=== PATIENT | male | born 1945 | race Caucasian/White ===

== ENCOUNTER 2016-11-24 10:18 | Emergency (ER) | payer MEDICARE, BC ==
[2016-11-24 10:59] VITALS: BP 156/72
[2016-11-24] MEDS ORDERED: Ketorolac 60 MG/2 ML SDV IM ONE (11:01)
--- NOTE | 2016-11-24 11:09 | EDM.PDOC ---
ED HPI GENERAL MEDICAL PROBLEM - General Chief Complaint: Upper Extremity Injury/Pain Stated Complaint: NECK AND SHOULDER PAIN Time Seen by Provider: 11/24/16 10:56 Source of Information: Reports: Patient, Family, RN Notes Reviewed History Limitations: Reports: No Limitations - History of Present Illness INITIAL COMMENTS - FREE TEXT/NARRATIVE: 71-year-old gentleman presents emergency department today complaint of left shoulder pain, he states he awoke this morning and had difficulty moving his shoulder has improved a little bit he's got a little bit more move meant he denies any trauma he does not recall having this particular event ever before - Related Data Allergies Allergy/AdvReac Type Severity Reaction Status Date / Time ciprofloxacin [From Cipro] Allergy Swelling Verified 11/24/16 10:45 Home Meds: Home Meds levETIRAcetam [Levetiracetam] 1,000 mg PO BID 05/17/16 [History] atorvaSTATin [Lipitor] 11/24/16 [History] glipiZIDE [Glipizide] 11/24/16 [History] Past Medical History Cardiovascular History: Reports: High Cholesterol Neurological History: Reports: Other (See Below) Other Neuro History: epilepsy Endocrine/Metabolic History: Reports: Diabetes, Type II - Infectious Disease History Infectious Disease History: Reports: Chicken Pox - Past Surgical History Musculoskeletal Surgical History: Reports: Knee Replacement Social & Family History - Tobacco Use Smoking Status *Q: Never Smoker - Caffeine Use Caffeine Use: Reports: Coffee, Tea - Recreational Drug Use Recreational Drug Use: No Review of Systems - Review of Systems Review Of Systems: See Below Constitutional: Reports: No Symptoms Eyes: Reports: No Symptoms Ears: Reports: No Symptoms Nose: Reports: No Symptoms Mouth/Throat: Reports: No Symptoms Respiratory: Reports: No Symptoms Cardiovascular: Reports: No Symptoms GI/Abdominal: Reports: No Symptoms Musculoskeletal: Reports: Shoulder Pain Skin: Reports: No Symptoms ED EXAM, GENERAL - Physical Exam Exam: See Below Free Text/Narrative:: Examination the shoulder he has difficulty with abduction only approximately 10 for pain does not tolerate internal and external rotation of the shoulder, radial pulses 2+ Course - Vital Signs Last Recorded V/S: Last Vital Signs Temp 98.5 F 11/24/16 10:53 Pulse 41 L 11/24/16 10:53 Resp 16 11/24/16 10:53 BP 156/72 H 11/24/16 10:53 Pulse Ox 94 L 06/17/17 10:53 - Orders/Labs/Meds Orders: Active Orders 24 hr Category Date Time Status Shoulder Comp Rt [CR] Stat Exams 11/24/16 11:05 Ordered Meds: Medications Discontinued Medications Generic Name Dose Route Start Last Admin Trade Name Greg PRN Reason Stop Dose Admin Ketorolac Tromethamine 60 mg 11/24/16 11:01 11/24/16 11:20 Toradol IM 11/24/16 11:02 60 mg ONETIME ONE Administration Departure - Departure Time of Disposition: 11:40 Disposition: Home, Self-Care 01 Condition: Good Clinical Impression: Frozen shoulder Qualifiers: Laterality: left Qualified Code(s): M75.02 - Adhesive capsulitis of left shoulder - Discharge Information Forms: ED Department Discharge Additional Instructions: Try ibuprofen until reevaluated by your primary care provider next week, call return to the emergency department with worsening of symptoms - My Orders Last 24 Hours: My Active Orders 11/24/16 11:05 Shoulder Comp Rt [CR] Stat - Assessment/Plan Last 24 Hours: My Active Orders 11/24/16 11:05 Shoulder Comp Rt [CR] Stat Plan: Assessment Acuity = acute Site and laterality = frozen shoulder comp care the patient known history of diabetestype II Etiology = unclear etiology Manifestations = pain Location of injury = home Lab values = shoulder x-ray I did review films myself I cannot appreciate any acute process, the official read from radiology is pending Plan He had some relief with the Toradol injection provided I did offer further evaluation and referral to orthopedics he declined he does have follow-up with his primary care provider this coming week Patient was in agreement with the plan all questions were answered, they were instructed to return to the emergency department or call for worsening symptoms. This note was dictated using [employer] voice recognition software please call with any questions.
--- NOTE | 2016-11-26 10:41 | CR ---
Shoulder Comp Rt HISTORY: pain, no trauma FINDINGS: No acute fracture or dislocation is identified. Bony architecture is preserved. Mild degen erative changes and appear marginal osteoids is seen at the clinic joint. Hypertrophic changes are s een at the AC joint. Left upper chest is clear. IMPRESSION: Degenerative changes. No acute left shoulder abnormality is identified.
== END 2016-11-24 11:49 | disposition home or self-care (01) ==
LOC: JP.ED 10:18
DX: M75.02 Adhesive capsulitis of left shoulder (principal); E78.00 Pure hypercholesterolemia, unspecified; E11.9 Type 2 diabetes mellitus without complications; G40.909 Epilepsy, unspecified, not intractable, without status epilepticus; Z96.659 Presence of unspecified artificial knee joint; Z88.1 Allergy status to other antibiotic agents
CPT/HCPCS: 73030; 96372; 99284; J1885; 99282

== ENCOUNTER 2016-11-27 06:17 | Emergency (ER) | payer MEDICARE, BC ==
[2016-11-27 06:26] VITALS: BP 171/77
--- NOTE | 2016-11-27 07:25 | EDM.PDOC ---
ED HPI GENERAL MEDICAL PROBLEM - General Chief Complaint: Neuro Symptoms/Deficits Stated Complaint: MEDICAL VIA [facility] Time Seen by Provider: 11/27/16 07:21 Source of Information: Reports: Patient, RN Notes Reviewed History Limitations: Reports: No Limitations - History of Present Illness INITIAL COMMENTS - FREE TEXT/NARRATIVE: 71-year-old gentleman presents emergency department today via EMS services, he has a known seizure disorder he states he was feeling fine yesterday, collapsed this morning he does not remember any particular details he was somewhat confused this morning and had difficulty with speech now at this time he feels all that is starting to resolve last seizure was approximately 3 years ago he currently uses Keppra as his main seizure medication. 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 Denies Pain Score (Numeric/FACES): 0 - Related Data Allergies Allergy/AdvReac Type Severity Reaction Status Date / Time ciprofloxacin [From Cipro] Allergy Swelling Verified 11/27/16 06:26 Home Meds: Home Meds levETIRAcetam [Levetiracetam] 1,000 mg PO BID 05/17/16 [History] Ibuprofen [Motrin] 600 mg PO TID PRN #30 tab 11/24/16 [Rx] atorvaSTATin [Lipitor] 1 tab PO BEDTIME 11/24/16 [History] glipiZIDE [Glipizide] 20 mg PO DAILY 11/27/16 [History] Past Medical History HEENT History: Reports: Impaired Vision Cardiovascular History: Reports: High Cholesterol Neurological History: Reports: Other (See Below) Other Neuro History: epilepsy Psychiatric History: Reports: Depression Endocrine/Metabolic History: Reports: Diabetes, Type II - Infectious Disease History Infectious Disease History: Reports: Chicken Pox, Shingles - Past Surgical History HEENT Surgical History: Reports: Cataract Surgery GI Surgical History: Reports: Colonoscopy Musculoskeletal Surgical History: Reports: Knee Replacement Social & Family History - Tobacco Use Smoking Status *Q: Never Smoker Second Hand Smoke Exposure: No - Caffeine Use Caffeine Use: Reports: Coffee - Recreational Drug Use Recreational Drug Use: No ED ROS GENERAL - Review of Systems Review Of Systems: See Below Constitutional: Reports: No Symptoms HEENT: Reports: No Symptoms Respiratory: Reports: No Symptoms Cardiovascular: Reports: No Symptoms GI/Abdominal: Reports: No Symptoms : Reports: No Symptoms Musculoskeletal: Reports: No Symptoms Skin: Reports: No Symptoms Neurological: Reports: Confusion, Seizure, Trouble Speaking ED EXAM, NEURO - Physical Exam Exam: See Below Text/Narrative:: General: Male, not in any distress, alert and oriented x3 HEENT: head is atraumatic normocephalic, eyes pupils equal round reactive to light, sclera clear no conjunctivitis appreciated. Ears blocked by cerumen bilaterally, nose : no septal deviation, nares are clear, no blood present. Mouth mucosa is moist and pink no erythema or exudate noted in soft palate, tongue is midline uvula is midline, dentition is intact. Neck: Supple no thyromegaly no tracheal deviation. Nodes: Cervical nodes subclavicular nodes nontender no palpable lymphadenopathy noted. Lungs: clear to auscultation bilaterally with symmetrical respirations, no adventitious noise appreciated. CV: Regular rate and rhythm S1 and S2 appreciated no murmurs rubs or gallops noted. Abdomen: Soft, nontender, no palpable masses or organomegaly appreciated, no distention no guarding bowel sounds are present. Neuro: Cranial nerves II through XII grossly intact no focal neurologic deficit blackman 5 x 5 in the upper extremities no dysdiadochokinesis Skin: Warm and dry, intact Extremities: No lower extremity edema appreciated, Course - Vital Signs Last Recorded V/S: Last Vital Signs Temp 98.1 F 11/27/16 06:24 Pulse 74 11/27/16 06:24 Resp 20 11/27/16 06:24 BP 171/77 H 11/27/16 06:24 Pulse Ox 89 L 11/27/16 06:24 - Orders/Labs/Meds Orders: Active Orders 24 hr Category Date Time Status [facility] [place] [REF] Stat Lab 11/27/16 07:20 Received Labs: Laboratory Tests 11/27/16 11/27/16 11/27/16 Range/Units 07:20 07:20 07:20 WBC 12.4 H (4.5-11.0) K/uL RBC 4.48 (4.30-5.90) M/uL Hgb 13.4 (12.0-15.0) g/dL Hct 38.3 L (40.0-54.0) % MCV 86 (80-98) fL MCH 30 (27-31) pg MCHC 35 (32-36) % Plt Count 236 (150-400) K/uL Neut % (Auto) 72 H (36-66) % Lymph % (Auto) 17 L (24-44) % [place] % (Auto) 8 H (2-6) % Eos % (Auto) 2 (2-4) % Baso % (Auto) 1 (0-1) % Sodium 139 L (140-148) mmol/L Potassium 4.0 (3.6-5.2) mmol/L Chloride 102 (100-108) mmol/L Carbon Dioxide 30 (21-32) mmol/L Anion Gap 11.0 (5.0-14.0) mmol/L BUN 27 H (7-18) mg/dL Creatinine 1.5 H (0.8-1.3) mg/dL Est Cr Clr Drug Dosing 39.86 mL/min Estimated GFR (MDRD) 46 L (>60) Glucose 254 H (74-106) mg/dL Calcium 8.6 (8.5-10.1) mg/dL Magnesium 1.9 (1.8-2.4) mg/dL Total Bilirubin 0.4 (0.2-1.0) mg/dL AST 12 L (15-37) U/L ALT 20 (12-78) U/L Alkaline Phosphatase 78 (46-116) U/L Total Protein 6.9 (6.4-8.2) g/dL Albumin 2.8 L (3.4-5.0) g/dL Globulin 4.1 H (2.3-3.5) g/dL Albumin/Globulin Ratio 0.7 L (1.2-2.2) Urine Color Urine Appearance Urine pH (4.5-8.0) Ur Specific [place] (1.008-1.030) Urine Protein (NEGATIVE) mg/dL Urine Glucose (UA) (NEGATIVE) mg/dL Urine Ketones (NEGATIVE) mg/dL Urine Occult Blood (NEGATIVE) Urine Nitrite (NEGAITVE) Urine Bilirubin (NEGATIVE) Urine Urobilinogen (NORMAL) mg/dL Ur Leukocyte Esterase (NEGATIVE) Urine RBC (0-5) Urine WBC (0-5) Ur Epithelial Cells Amorphous Sediment Urine Bacteria Urine Mucus Urine Opiates Screen (NEGATIVE) Ur Oxycodone Screen (NEGATIVE) Urine Methadone Screen (NEGATIVE) Ur Propoxyphene Screen (NEGATIVE) Ur Barbiturates Screen (NEGATIVE) Ur Tricyclics Screen (NEGATIVE) Ur Phencyclidine Scrn (NEGATIVE) Ur Amphetamine Screen (NEGATIVE) U Methamphetamines Scrn (NEGATIVE) Urine MDMA Screen (NEGATIVE) U Benzodiazepines Scrn (NEGATIVE) U Cocaine Metab Screen (NEGATIVE) U Marijuana (THC) Screen (NEGATIVE) Ethyl Alcohol < 3 mg/dL 11/27/16 11/27/16 Range/Units 07:40 07:40 WBC (4.5-11.0) K/uL RBC (4.30-5.90) M/uL Hgb (12.0-15.0) g/dL Hct (40.0-54.0) % MCV (80-98) fL MCH (27-31) pg MCHC (32-36) % Plt Count (150-400) K/uL Neut % (Auto) (36-66) % Lymph % (Auto) (24-44) % [place] % (Auto) (2-6) % Eos % (Auto) (2-4) % Baso % (Auto) (0-1) % Sodium (140-148) mmol/L Potassium (3.6-5.2) mmol/L Chloride (100-108) mmol/L Carbon Dioxide (21-32) mmol/L Anion Gap (5.0-14.0) mmol/L BUN (7-18) mg/dL Creatinine (0.8-1.3) mg/dL Est Cr Clr Drug Dosing mL/min Estimated GFR (MDRD) (>60) Glucose (74-106) mg/dL Calcium (8.5-10.1) mg/dL Magnesium (1.8-2.4) mg/dL Total Bilirubin (0.2-1.0) mg/dL AST (15-37) U/L ALT (12-78) U/L Alkaline Phosphatase (46-116) U/L Total Protein (6.4-8.2) g/dL Albumin (3.4-5.0) g/dL Globulin (2.3-3.5) g/dL Albumin/Globulin Ratio (1.2-2.2) Urine Color Yellow Urine Appearance Slightly cloudy Urine pH 5.0 (4.5-8.0) Ur Specific [place] 1.020 (1.008-1.030) Urine Protein 30 H (NEGATIVE) mg/dL Urine Glucose (UA) 250 H (NEGATIVE) mg/dL Urine Ketones Negative (NEGATIVE) mg/dL Urine Occult Blood Large (NEGATIVE) Urine Nitrite Negative (NEGAITVE) Urine Bilirubin Negative (NEGATIVE) Urine Urobilinogen Normal (NORMAL) mg/dL Ur Leukocyte Esterase Negative (NEGATIVE) Urine RBC 10-20 H (0-5) Urine WBC 0-5 (0-5) Ur Epithelial Cells Few Amorphous Sediment Not seen Urine Bacteria Few Urine Mucus Not seen Urine Opiates Screen Positive H (NEGATIVE) Ur Oxycodone Screen Negative (NEGATIVE) Urine Methadone Screen Negative (NEGATIVE) Ur Propoxyphene Screen Negative (NEGATIVE) Ur Barbiturates Screen Negative (NEGATIVE) Ur Tricyclics Screen Negative (NEGATIVE) Ur Phencyclidine Scrn Negative (NEGATIVE) Ur Amphetamine Screen Negative (NEGATIVE) U Methamphetamines Scrn Negative (NEGATIVE) Urine MDMA Screen Negative (NEGATIVE) U Benzodiazepines Scrn Negative (NEGATIVE) U Cocaine Metab Screen Negative (NEGATIVE) U Marijuana (THC) Screen Negative (NEGATIVE) Ethyl Alcohol mg/dL Departure - Departure Time of Disposition: 08:40 Disposition: Home, Self-Care 01 Condition: Fair Clinical Impression: Seizure - Discharge Information Forms: ED Department Discharge Additional Instructions: please resume your regular medications keep your follow-up appointment with your primary care provider on of this week recommend follow-up with neurology, please refrain from driving your car until reevaluated by neurology - My Orders Last 24 Hours: My Active Orders 11/27/16 07:20 [facility] [REF] Stat - Assessment/Plan Last 24 Hours: My Active Orders 11/27/16 07:20 [facility] [REF] Stat Plan: Assessment Acuity = acute on chronic Site and laterality = seizure complicated patient with known seizure disorder diabetes mellitus type 2, hypertension, dyslipidemia Etiology = unclear etiology Manifestations = none Location of injury = home Lab values = WBC elevated at 12.4 consistent leukocytosis, sodium low at 139 consistent hyponatremia creatinine elevated at 1.5 consistent with chronic renal failure stage G IIIB glucose elevated at 254 consistent hyperglycemia albumin low at 2.8 consistent hypoalbuminemia urinalysis specific gravity 1.020 consistent with intravascular volume depletion glucose at 250 consistent with glucosuria and rbc's 10-20 consistent with hematuria,urine drug screen positive for opiates alcohol was negative Plan I did review lab work with him Keppra level is pending he does have a follow-up appointment with his primary care provider in 2 days he has not seen a neurologist in several years of asked him to reestablish with neurology to review his seizure medications Patient was in agreement with the plan all questions were answered, they were instructed to return to the emergency department or call for worsening symptoms. This note was dictated using [employer] voice recognition software please call with any questions.
== END 2016-11-27 08:55 | disposition home or self-care (01) ==
LOC: JP.ED 06:17
DX: R56.9 Unspecified convulsions (principal); E78.00 Pure hypercholesterolemia, unspecified; E11.9 Type 2 diabetes mellitus without complications; Z98.49 Cataract extraction status, unspecified eye; Z96.659 Presence of unspecified artificial knee joint; Z88.1 Allergy status to other antibiotic agents; Z79.84 Long term (current) use of oral hypoglycemic drugs
CPT/HCPCS: 36415; 80053; 80177; 80305; 81001; 83735; 85025; 99284; G0480

== ENCOUNTER 2016-11-27 16:46 | Inpatient (IN) | payer MEDICARE, BC ==
[2016-11-27] MEDS ORDERED: Sodium Chloride 0.9% 10 ML Syringe FLUSH PRN ×2 (17:32)
--- NOTE | 2016-11-27 17:36 | EDM.PDOC ---
ED HPI GENERAL MEDICAL PROBLEM - General Chief Complaint: Neurological Problem Stated Complaint: SEISURES Time Seen by Provider: 11/27/16 17:23 Source of Information: Reports: Patient, Family, RN Notes Reviewed History Limitations: Reports: No Limitations - History of Present Illness INITIAL COMMENTS - FREE TEXT/NARRATIVE: 71-year-old gentleman presents emergency department today with repetitive seizures, he was evaluated emergency department earlier today he has a known seizure disorder is currently using Keppra initial evaluation was unremarkable states he went home felt fine somewhere in the afternoon he had a another seizure event fell he did contact his brother about 1:00 in the afternoon he did not want to return to the emergency department for further evaluation. At this time he feels he is back to his normal state however he is unsure what happened. - Related Data Allergies Allergy/AdvReac Type Severity Reaction Status Date / Time ciprofloxacin [From Cipro] Allergy Swelling Verified 11/27/16 17:26 Home Meds: Home Meds levETIRAcetam [Levetiracetam] 1,000 mg PO BID 05/17/16 [History] Ibuprofen [Motrin] 600 mg PO TID PRN #30 tab 11/24/16 [Rx] atorvaSTATin [Lipitor] 1 tab PO BEDTIME 11/24/16 [History] glipiZIDE [Glipizide] 20 mg PO DAILY 11/27/16 [History] Past Medical History HEENT History: Reports: Impaired Vision Cardiovascular History: Reports: High Cholesterol Neurological History: Reports: Seizure, Other (See Below) Other Neuro History: epilepsy Psychiatric History: Reports: Depression Endocrine/Metabolic History: Reports: Diabetes, Type II - Infectious Disease History Infectious Disease History: Reports: Chicken Pox, Shingles - Past Surgical History HEENT Surgical History: Reports: Cataract Surgery GI Surgical History: Reports: Colonoscopy Musculoskeletal Surgical History: Reports: Knee Replacement Social & Family History - Tobacco Use Smoking Status *Q: Never Smoker Second Hand Smoke Exposure: No - Caffeine Use Caffeine Use: Reports: Coffee - Recreational Drug Use Recreational Drug Use: No ED ROS GENERAL - Review of Systems Review Of Systems: See Below Constitutional: Denies: Fever, Chills HEENT: Reports: No Symptoms Respiratory: Reports: No Symptoms Cardiovascular: Reports: No Symptoms GI/Abdominal: Reports: No Symptoms : Reports: No Symptoms Musculoskeletal: Reports: No Symptoms Skin: Reports: No Symptoms Neurological: Reports: Confusion, Seizure, Change in Speech ED EXAM, NEURO - Physical Exam Exam: See Below Text/Narrative:: General: Male, not in any distress, alert and oriented x3 HEENT: head is atraumatic normocephalic, eyes pupils equal round reactive to light, sclera clear no conjunctivitis appreciated. Ears blocked by cerumen bilaterally. Nose no septal deviation, nares are clear, no blood present. Mouth mucosa is moist and pink no erythema or exudate noted in soft palate, tongue is midline uvula is midline, dentition is intact. Neck: Supple no thyromegaly no tracheal deviation. Nodes: Cervical nodes subclavicular nodes nontender no palpable lymphadenopathy noted. Lungs: clear to auscultation bilaterally with symmetrical respirations, no adventitious noise appreciated. CV: Regular rate and rhythm S1 and S2 appreciated no murmurs rubs or gallops noted. Abdomen: Soft, nontender, no palpable masses or organomegaly appreciated, no distention no guarding bowel sounds are present, . Neuro: Cranial nerves II through XII grossly intact, power is 5 out 5 in upper and lower extremities, no dysdiadochokinesis no difficulty with rapid alternating movements can do [id number] without difficulty no focal neurologic deficit Skin: Warm and dry, intact Extremities: No lower extremity edema appreciated, pedal pulse is +2. Course - Vital Signs Last Recorded V/S: Last Vital Signs Temp 99.0 F 11/27/16 17:19 Pulse 74 11/27/16 18:35 Resp 20 11/27/16 18:35 BP 153/89 H 11/27/16 18:35 Pulse Ox 95 11/27/16 18:35 - Orders/Labs/Meds Orders: Active Orders 24 hr Category Date Time Status EKG Documentation Completion [RC] ASDIRECTED Care 11/27/16 17:33 Active Peripheral IV Care [RC] . DIRECTED Care 11/27/16 17:33 Active Head wo Cont [CT] Urgent Exams 11/27/16 17:32 Taken Sodium Chloride 0.9% [Saline Flush] Med 11/27/16 17:32 Active 10 ml FLUSH ASDIRECTED PRN Sodium Chloride 0.9% [Saline Flush] Med 11/27/16 17:32 Active 10 ml FLUSH ASDIRECTED PRN Peripheral IV Insertion Adult [OM.PC] Urgent Oth 11/27/16 17:32 Ordered EKG 12 Lead [EK] Urgent Ther 11/27/16 17:32 Ordered Medication Orders Sodium Chloride (Saline Flush) 10 ml FLUSH ASDIRECTED PRN PRN Reason: Keep Vein Open Last Admin: 11/27/16 18:13 Dose: 10 ml Sodium Chloride (Saline Flush) 10 ml FLUSH ASDIRECTED PRN PRN Reason: Keep Vein Open Last Admin: 11/27/16 18:14 Dose: 10 ml Labs: Laboratory Tests 11/27/16 11/27/16 11/27/16 Range/Units 17:32 17:32 17:32 WBC 12.9 H (4.5-11.0) K/uL RBC 4.76 (4.30-5.90) M/uL Hgb 13.7 (12.0-15.0) g/dL Hct 40.3 (40.0-54.0) % MCV 85 (80-98) fL MCH 29 (27-31) pg MCHC 34 (32-36) % Plt Count 253 (150-400) K/uL Neut % (Auto) 65 (36-66) % Lymph % (Auto) 24 (24-44) % [place] % (Auto) 8 H (2-6) % Eos % (Auto) 2 (2-4) % Baso % (Auto) 1 (0-1) % PT 9.9 (9.5-12.0) sec INR 0.93 (0.80-1.20) Sodium 139 L (140-148) mmol/L Potassium 3.8 (3.6-5.2) mmol/L Chloride 101 (100-108) mmol/L Carbon Dioxide 32 (21-32) mmol/L Anion Gap 9.8 (5.0-14.0) mmol/L BUN 25 H (7-18) mg/dL Creatinine 1.3 (0.8-1.3) mg/dL Est Cr Clr Drug Dosing 45.92 mL/min Estimated GFR (MDRD) 55 L (>60) Glucose 275 H (74-106) mg/dL Calcium 9.0 (8.5-10.1) mg/dL Magnesium 2.0 (1.8-2.4) mg/dL Total Bilirubin 0.4 (0.2-1.0) mg/dL AST 12 L (15-37) U/L ALT 20 (12-78) U/L Alkaline Phosphatase 86 (46-116) U/L C-Reactive Protein 2.95 H (0.0-0.3) mg/dL Total Protein 7.3 (6.4-8.2) g/dL Albumin 2.9 L (3.4-5.0) g/dL Globulin 4.4 H (2.3-3.5) g/dL Albumin/Globulin Ratio 0.7 L (1.2-2.2) Meds: Medications Generic Name Dose Route Start Last Admin Trade Name Freq PRN Reason Stop Dose Admin Sodium Chloride 10 ml 11/27/16 17:32 11/27/16 18:13 Saline Flush FLUSH 10 ml ASDIRECTED PRN Administration Keep Vein Open Sodium Chloride 10 ml 11/27/16 17:32 11/27/16 18:14 Saline Flush FLUSH 10 ml ASDIRECTED PRN Administration Keep Vein Open Departure - Departure Time of Disposition: 18:49 Disposition: Admitted As Inpatient 67 Condition: Fair Clinical Impression: Post-ictal confusion - Discharge Information Forms: ED Department Discharge - My Orders Last 24 Hours: My Active Orders 11/27/16 17:32 Head wo Cont [CT] Urgent Sodium Chloride 0.9% [Saline Flush] 10 ml FLUSH ASDIRECTED PRN Sodium Chloride 0.9% [Saline Flush] 10 ml FLUSH ASDIRECTED PRN Peripheral IV Insertion Adult [OM.PC] Urgent EKG 12 Lead [EK] Urgent 11/27/16 17:33 EKG Documentation Completion [RC] ASDIRECTED Peripheral IV Care [RC] . DIRECTED - Assessment/Plan Last 24 Hours: My Active Orders 11/27/16 17:32 Head wo Cont [CT] Urgent Sodium Chloride 0.9% [Saline Flush] 10 ml FLUSH ASDIRECTED PRN Sodium Chloride 0.9% [Saline Flush] 10 ml FLUSH ASDIRECTED PRN Peripheral IV Insertion Adult [OM.PC] Urgent EKG 12 Lead [EK] Urgent 11/27/16 17:33 EKG Documentation Completion [RC] ASDIRECTED Peripheral IV Care [RC] . DIRECTED Plan: Assessment Acuity = acute on chronic Site and laterality = breakthrough seizures while on Keppra Etiology = unclear etiology Manifestations = prolonged postictal state Location of injury = home Lab values = WBC elevated at 12.9 consistent leukocytosis sodium low at 139 consistent hyponatremia glucose elevated 275 consistent hyperglycemia CRP elevated at 2.95 of uncertain etiology albumin low at 2.[address] scan shows mild age-related brain atrophy small area chronic encephalomalacia left frontal lobe Plan Discuss case with hospitalist principal solutions architect he agreed to come and evaluate the patient ED for admission Patient was in agreement with the plan all questions were answered, This note was dictated using [employer] voice recognition software please call with any questions.
--- NOTE | 2016-11-27 19:47 | PCM.HP ---
H&P History of Present Illness - General Date of Service: 11/27/16 Admit Problem/Dx: Admission Diagnosis/Problem Admission Diagnosis/Problem Seizure Source of Information: Patient, Provider History Limitations: Reports: No Limitations - History of Present Illness Initial Comments - Free Text/Narative: Haroldo presented to the emergency room again this evening following a second seizure. He had a seizure earlier this morning and was evaluated in the emergency room. Workup this morning was unremarkable and he felt well so he went home. Unfortunately after returning home he had another episode of seizure activity. He does not recall most of the events around the seizure but remembers waking up a little bit confused on the floor. He was able to contact his brother who brought him to the emergency room for more evaluation. He feels tired at this time but otherwise feels okay. He does not have any aches or pains that he can attribute to the fall. He does have some left shoulder pain that has been present for a week or so but seems to be getting better. No complaints of headache, shortness of breath, abdominal pain. No recent issues with change in bowel or bladder habits. No fevers. He is pretty sure he has been taking his medications as prescribed. Workup in the emergency room has been reassuring. No significant lab abnormalities other than mild hyperglycemia. Head CT earlier in the day did not show any acute changes. He will be admitted for observation after a second episode of seizure activity. - Related Data Allergies/Adverse Reactions: Allergies Allergy/AdvReac Type Severity Reaction Status Date / Time ciprofloxacin [From Cipro] Allergy Swelling Verified 11/27/16 17:26 Home Medications: Home Meds levETIRAcetam [Levetiracetam] 1,000 mg PO BID 05/17/16 [History] Ibuprofen [Motrin] 600 mg PO TID PRN #30 tab 11/24/16 [Rx] atorvaSTATin [Lipitor] 20 mg PO BEDTIME 11/24/16 [History] glipiZIDE [Glipizide] 10 mg PO DAILY 11/27/16 [History] Past Medical History HEENT History: Reports: Impaired Vision Cardiovascular History: Reports: High Cholesterol Neurological History: Reports: Seizure, Other (See Below) Other Neuro History: epilepsy Psychiatric History: Reports: Depression Endocrine/Metabolic History: Reports: Diabetes, Type II - Infectious Disease History Infectious Disease History: Reports: Chicken Pox, Shingles - Past Surgical History HEENT Surgical History: Reports: Cataract Surgery GI Surgical History: Reports: Colonoscopy Musculoskeletal Surgical History: Reports: Knee Replacement Social & Family History - Family History Neurological: Denies: Seizure - Tobacco Use Smoking Status *Q: Never Smoker Second Hand Smoke Exposure: No - Caffeine Use Caffeine Use: Reports: Coffee - Alcohol Use Alcohol Use History: No - Recreational Drug Use Recreational Drug Use: No H&P Review of Systems - Review of Systems: Review Of Systems: See Below Free Text/Narrative: A complete 12 point review of systems was obtained. Pertinent positives and negatives are noted in the history of present illness. All other systems were reviewed and were negative except as noted. Exam - Exam Exam: See Below - Vital Signs Vital Signs: Last Vital Signs Temp 37.2 C 11/27/16 17:19 Pulse 74 11/27/16 18:35 Resp 20 11/27/16 18:35 BP 153/89 H 11/27/16 18:35 Pulse Ox 95 11/27/16 18:35 Weight: 99.7 kg - Exam Quality Assessment: No: Supplemental Oxygen General: Alert, Oriented, Cooperative. No: Mild Distress HEENT: PERRLA, Conjunctiva Clear, Mucosa Moist & [place]. No: Scleral Icterus Neck: Supple, Trachea Midline. No: Lymphadenopathy, Thyromegaly Lungs: Clear to Auscultation, Normal Respiratory Effort Cardiovascular: Regular Rate, Regular Rhythm, Systolic Murmur (Soft systolic ejection murmur right upper sternal border) Abdomen: Normal Bowel Sounds, Soft, Tenderness (Very mild central abdominal tenderness). No: Distention, Guarding, Mass Back Exam: Normal Inspection, Full Range of Motion Extremities: Normal Pulses, Edema (Very mild ankle edema), Other (Ichthyotic skin around the ankles). No: Cyanosis Peripheral Pulses: 2+: Dorsalis Pedis (L), Dorsalis Pedis (R) Skin: Warm, Dry. No: Ecchymosis Neuro Extensive - Mental Status: Alert, Oriented x3, Nl Response to Commands Neuro Extensive - Motor, Sensory, Reflexes: CN II-XII Intact, Dysarthria (Very mild). No: Motor/Sensory Deficits, Abnormal Motor, Tremor Psychiatric: Alert, Normal Affect - Patient Data Lab Results Last 24 hrs: Laboratory Results - last 24 hr 11/27/16 11/27/16 11/27/16 Range/Units 17:32 17:32 17:32 WBC 12.9 H (4.5-11.0) K/uL RBC 4.76 (4.30-5.90) M/uL Hgb 13.7 (12.0-15.0) g/dL Hct 40.3 (40.0-54.0) % MCV 85 (80-98) fL MCH 29 (27-31) pg MCHC 34 (32-36) % Plt Count 253 (150-400) K/uL Neut % (Auto) 65 (36-66) % Lymph % (Auto) 24 (24-44) % [place] % (Auto) 8 H (2-6) % Eos % (Auto) 2 (2-4) % Baso % (Auto) 1 (0-1) % PT 9.9 (9.5-12.0) sec INR 0.93 (0.80-1.20) Sodium 139 L (140-148) mmol/L Potassium 3.8 (3.6-5.2) mmol/L Chloride 101 (100-108) mmol/L Carbon Dioxide 32 (21-32) mmol/L Anion Gap 9.8 (5.0-14.0) mmol/L BUN 25 H (7-18) mg/dL Creatinine 1.3 (0.8-1.3) mg/dL Est Cr Clr Drug Dosing 45.92 mL/min Estimated GFR (MDRD) 55 L (>60) Glucose 275 H (74-106) mg/dL Calcium 9.0 (8.5-10.1) mg/dL Magnesium 2.0 (1.8-2.4) mg/dL Total Bilirubin 0.4 (0.2-1.0) mg/dL AST 12 L (15-37) U/L ALT 20 (12-78) U/L Alkaline Phosphatase 86 (46-116) U/L C-Reactive Protein 2.95 H (0.0-0.3) mg/dL Total Protein 7.3 (6.4-8.2) g/dL Albumin 2.9 L (3.4-5.0) g/dL Globulin 4.4 H (2.3-3.5) g/dL Albumin/Globulin Ratio 0.7 L (1.2-2.2) Result Diagrams: 11/27/16 17:32 11/27/16 17:32 *Q Meaningful Use (ADM) - VTE *Q VTE Criteria *Q: - VTE Risk Assess *Q Each Risk Factor Represents 1 Point: Swollen Legs, Current, Obesity (BMI greater than 30) Total Score 1 Point Risk Factors: 2 Each Risk Factor Represents 2 Points: Age 60 - 74 Years Total Score 2 Point Risk Factors: 2 Each Risk Factor Represents 3 Points: None Total Score 3 Point Risk Factors: 0 Each Risk Factor Represents 5 Points: None Total Score 5 Point Risk Factors: 0 Venous Thromboembolism Risk Factor Score *Q: 4 - Stroke *Q Stroke Criteria *Q: - AMI *Q AMI Criteria *Q: - Problem List (1) Seizure SNOMED Code(s): 44727644 ICD Code: R56.9 - UNSPECIFIED CONVULSIONS Status: Acute Current Visit: No (2) Diabetes mellitus type 2 in obese SNOMED Code(s): 14622166 ICD Code: E11.69 - TYPE 2 DIABETES MELLITUS WITH OTHER SPECIFIED COMPLICATION ; E66.9 - OBESITY, UNSPECIFIED Status: Chronic Current Visit: Yes Problem List Initiated/Reviewed/Updated: Yes Orders Last 24hrs: Active Orders 24 hr Category Date Time Status Patient Status Manage Transfer [TRANSFER] Routine ADT 11/27/16 19:41 Ordered EKG Documentation Completion [RC] ASDIRECTED Care 11/27/16 17:33 Active Peripheral IV Care [RC] . DIRECTED Care 11/27/16 17:33 Active Head wo Cont [CT] Urgent Exams 11/27/16 17:32 Taken Sodium Chloride 0.9% [Saline Flush] Med 11/27/16 17:32 Active 10 ml FLUSH ASDIRECTED PRN Sodium Chloride 0.9% [Saline Flush] Med 11/27/16 17:32 Active 10 ml FLUSH ASDIRECTED PRN Peripheral IV Insertion Adult [OM.PC] Urgent Oth 11/27/16 17:32 Ordered Resuscitation Status Routine Resus Stat 11/27/16 19:43 Ordered EKG 12 Lead [EK] Urgent Ther 11/27/16 17:32 Ordered Medication Orders Sodium Chloride (Saline Flush) 10 ml FLUSH ASDIRECTED PRN PRN Reason: Keep Vein Open Last Admin: 11/27/16 18:13 Dose: 10 ml Sodium Chloride (Saline Flush) 10 ml FLUSH ASDIRECTED PRN PRN Reason: Keep Vein Open Last Admin: 11/27/16 18:14 Dose: 10 ml Assessment/Plan Comment:: Assessment and plan - Breakthrough seizures - history of traumatic brain injury approximately 10 years ago. Last seizure was one and a half years ago. No obvious trigger at this time. We did discuss increasing his medication but with his current creatinine clearance I think we need to leave his medication at the current level. With 2 seizures today he is not safe for outpatient management and would benefit from at least one night of observation. Workup so far has been reassuring. No evidence for infection as of now. -Continue Keppra 1000 mg twice daily -Lorazepam as needed if he has additional seizures -Cardiac monitoring -Follow-up Keppra level sent from the emergency room earlier in the day -Consider physical therapy in the morning if he is weak Type 2 diabetes mellitus - on a single oral agent at this time. Patient reports good control but last A1c was 8.8. -Accu-Cheks to trend blood sugars -Continue home medications in the morning Maintenance issues - - DVT prophylaxis - mechanical - GI prophylaxis - not indicated - Nutrition - consistent carbohydrates - Calderón catheter - not indicated CODE STATUS - full code Admission justification - patient will be referred to observation status for close monitoring in case he has additional seizure activity overnight Disposition - anticipate discharge home tomorrow Primary care physician - Dr. Hossein Neff M.D.
[2016-11-27] MEDS ORDERED: Sodium Chloride 0.9% 1,000 ML IV SCH (20:45)
[2016-11-27] MEDS ORDERED: Polyethylene Glycol 3350 Powder 17 GM Packet PO PRN (20:45)
[2016-11-27] MEDS ORDERED: LORazepam 2 MG/ML MDV IVPUSH PRN (20:45)
[2016-11-27] MEDS ORDERED: Ondansetron 4 MG Tab.DIS PO PRN (20:45)
[2016-11-27] MEDS: levETIRAcetam 250 MG Tab PO SCH (21:22)
[2016-11-28] MEDS: levETIRAcetam 250 MG Tab PO SCH ×2 (09:25→21:06)
[2016-11-28] MEDS: glipiZIDE 5 MG Tab PO SCH (09:25)
--- NOTE | 2016-11-28 15:57 | PCM.PN ---
- General Info Date of Service: 11/28/16 Functional Status: Reports: pain controlled, ambulating - Review of Systems General: Reports: Weakness Neurological: Reports: Trouble Speaking, Difficulty Walking Systems Review Comment:: No acute events overnight. No recurrence of seizures. Worried he is still having some trouble speaking today and feels "tongue tied". He feels like his arms and legs are moving okay. Feels a little unsteady on his feet. He has not had any fevers. No complaints of headache or blurry vision. - Patient Data Vitals - most recent: Last Vital Signs Temp 36.8 C 11/28/16 12:00 Pulse 76 11/28/16 12:00 Resp 19 11/28/16 12:00 BP 162/82 H 11/28/16 12:00 Pulse Ox 94 L 11/28/16 12:00 Weight - most recent: 98.566 kg I&O - last 24 hours: Intake & Output 11/28/16 11/28/16 11/28/16 06:59 14:59 22:59 Intake Total 1195 Output Total 750 Balance 445 Lab Results last 24 hrs: Laboratory Results - last 24 hr 11/28/16 11/28/16 Range/Units 05:57 05:57 WBC 12.2 H (4.5-11.0) K/uL RBC 4.40 (4.30-5.90) M/uL Hgb 12.4 (12.0-15.0) g/dL Hct 37.4 L (40.0-54.0) % MCV 85 (80-98) fL MCH 28 (27-31) pg MCHC 33 (32-36) % Plt Count 243 (150-400) K/uL Sodium 141 (140-148) mmol/L Potassium 3.6 (3.6-5.2) mmol/L Chloride 106 (100-108) mmol/L Carbon Dioxide 30 (21-32) mmol/L Anion Gap 4.7 L (5.0-14.0) mmol/L BUN 20 H (7-18) mg/dL Creatinine 1.1 (0.8-1.3) mg/dL Est Cr Clr Drug Dosing 54.36 mL/min Estimated GFR (MDRD) > 60 (>60) Glucose 169 H (74-106) mg/dL Calcium 8.4 L (8.5-10.1) mg/dL Med Orders - Current: Current Medications Acetaminophen (Tylenol) 650 mg PO Q4H PRN PRN Reason: Pain (Mild 1-3)/fever Glipizide (Glucotrol) 10 mg PO DAILY [facility] Last Admin: 11/28/16 09:25 Dose: 10 mg Levetiracetam (Keppra) 1,000 mg PO BID [facility] Last Admin: 11/28/16 09:25 Dose: 1,000 mg Lorazepam (Ativan) 1 - 2 mg IVPUSH Q4H PRN PRN Reason: Seizures Ondansetron HCl (Zofran Odt) 4 mg PO Q6H PRN PRN Reason: Nausea able to take PO Polyethylene Glycol (Miralax) 17 gm PO DAILY PRN PRN Reason: Constipation Sodium Chloride (Saline Flush) 10 ml FLUSH ASDIRECTED PRN PRN Reason: Keep Vein Open Last Admin: 11/27/16 18:13 Dose: 10 ml Discontinued Medications Sodium Chloride (Normal Saline) 1,000 mls @ 125 mls/hr IV ASDIRECTED [facility] Stop: 11/28/16 04:44 Last Admin: 11/27/16 21:04 Dose: 125 mls/hr Sodium Chloride (Saline Flush) 10 ml FLUSH ASDIRECTED PRN PRN Reason: Keep Vein Open Last Admin: 11/27/16 18:14 Dose: 10 ml - Exam Quality Assessment: No: supplemental oxygen General: alert, oriented, cooperative, no acute distress HEENT: Pupils equal Neck: supple Lungs: Normal respiratory effort Cardiovascular: Regular Rate, Regular Rhythm Abdomen: soft, no distension Extremities: no cyanosis, edema (mild bilateral ankle edema) Skin: warm, dry Neurological: strength equal bilateral. No: normal speech Psy/Mental Status: alert, normal affect - Problem List & Annotations (1) Seizure SNOMED Code(s): 20060643 Code(s): R56.9 - UNSPECIFIED CONVULSIONS Status: Acute Current Visit: No (2) Diabetes mellitus type 2 in obese SNOMED Code(s): 74319168 Code(s): E11.69 - TYPE 2 DIABETES MELLITUS WITH OTHER SPECIFIED COMPLICATION ; E66.9 - OBESITY, UNSPECIFIED Status: Chronic Current Visit: Yes (3) Dysarthria SNOMED Code(s): 3196636 Code(s): R47.1 - DYSARTHRIA AND ANARTHRIA Status: Acute Current Visit: Yes - Problem List Review Problem List Initiated/Reviewed/Updated: Yes - My Orders Last 24 Hours: My Active Orders 11/27/16 19:43 Resuscitation Status Routine 11/27/16 20:45 Patient Status [ADT] Routine Communication Order [RC] PRN Communication Order [RC] PRN Diabetes Education [RC] Click to Edit Notify Provider Vital Signs [RC] ASDIRECTED Notify Provider [RC] PRN Oxygen Therapy [RC] PRN Up With Assistance [RC] ASDIRECTED VTE/DVT Education [RC] Per Unit Routine Vital Signs [RC] Q4H Acetaminophen [Tylenol] 650 mg PO Q4H PRN LORazepam [Ativan] 1 - 2 mg IVPUSH Q4H PRN Ondansetron [Zofran ODT] 4 mg PO Q6H PRN Polyethylene Glycol 3350 [MiraLAX] 17 gm PO DAILY PRN Sequential Compression Device [OM.PC] Per Unit Routine 11/27/16 Dinner Consistent Carbohydrate Diet [DIET] 11/28/16 08:36 Discontinue Telemetry Monitoring [Cardiac Monitoring Discontinue] [RC] Click to Edit 11/28/16 08:38 PT Evaluation and Treatment [CONS] Routine Convert IV to Saline Lock [OM.PC] Routine 11/28/16 14:22 Brain wo Cont [MR] Routine 11/29/16 07:30 GLUCOSE POC LAB TO COLLECT [POC] QIDACANDBED - Plan Plan:: Assessment and plan - Breakthrough seizures - history of traumatic brain injury approximately 10 years ago. Last seizure was one and a half years ago. I suspected his dysarthria was related to the seizure but has not cleared overnight as expected. He does not have other neurologic deficits but does have some balance issues. I think he would benefit from additional neuroimaging to rule out occult stroke. -Continue Keppra 1000 mg twice daily -Lorazepam as needed if he has additional seizures -Discontinue Cardiac monitoring -Follow-up Keppra level sent from the emergency room earlier in the day -MRI -Aspirin Type 2 diabetes mellitus - on a single oral agent at this time. Sugars have been mildly elevated. -Accu-Cheks to trend blood sugars -Continue home medications in the morning Maintenance issues - - DVT prophylaxis - mechanical - GI prophylaxis - not indicated - Nutrition - consistent carbohydrates Admission justification - patient will be changed to inpatient status with suspicion for possible cerebrovascular accident. Disposition - anticipate discharge home tomorrow Jack Neff M.D.
[2016-11-28] MEDS ORDERED: Aspirin 81 MG Tab.Chew PO ONE (17:30)
[2016-11-28] MEDS: atorvaSTATin 20 MG Tab PO SCH (21:18)
[2016-11-29] MEDS: levETIRAcetam 250 MG Tab PO SCH ×2 (08:26→20:30)
[2016-11-29] MEDS: Aspirin 81 MG Tab.EC PO SCH (08:26)
[2016-11-29] MEDS: glipiZIDE 5 MG Tab PO SCH (08:26)
[2016-11-29] MEDS ORDERED: Lisinopril 10 MG Tab PO ONE (17:30)
--- NOTE | 2016-11-29 17:42 | PCM.PN ---
- General Info Date of Service: 11/29/16 Functional Status: Reports: pain controlled, tolerating diet - Review of Systems General: Reports: Weakness Neurological: Reports: Dizziness, Trouble Speaking, Difficulty Walking Systems Review Comment:: No acute events overnight. Speech is a bit better this morning. Feels unsteady on his feet and has some dizziness. Right side seems a bit weak compared to the left. Tolerating his diet. No fevers. No headache. No seizures. - Patient Data Vitals - most recent: Last Vital Signs Temp 37.7 C 11/29/16 13:11 Pulse 68 11/29/16 17:00 Resp 18 11/29/16 17:00 BP 205/71 H 11/29/16 17:14 Pulse Ox 95 11/29/16 13:11 Weight - most recent: 98.566 kg I&O - last 24 hours: Intake & Output 11/29/16 11/29/16 11/29/16 06:59 14:59 22:59 Intake Total 480 Output Total 200 Balance -200 480 Med Orders - Current: Current Medications Acetaminophen (Tylenol) 650 mg PO Q4H PRN PRN Reason: Pain (Mild 1-3)/fever Aspirin (Halfprin) 81 mg PO DAILY [facility] Last Admin: 11/29/16 08:26 Dose: 81 mg Atorvastatin Calcium (Lipitor) 80 mg PO BEDTIME [facility] Last Admin: 11/28/16 21:18 Dose: 80 mg Glipizide (Glucotrol) 10 mg PO DAILY [facility] Last Admin: 11/29/16 08:26 Dose: 10 mg Levetiracetam (Keppra) 1,000 mg PO BID [facility] Last Admin: 11/29/16 08:26 Dose: 1,000 mg Lisinopril (Prinivil) 10 mg PO DAILY [facility] Lorazepam (Ativan) 1 - 2 mg IVPUSH Q4H PRN PRN Reason: Seizures Ondansetron HCl (Zofran Odt) 4 mg PO Q6H PRN PRN Reason: Nausea able to take PO Polyethylene Glycol (Miralax) 17 gm PO DAILY PRN PRN Reason: Constipation Sodium Chloride (Saline Flush) 10 ml FLUSH ASDIRECTED PRN PRN Reason: Keep Vein Open Last Admin: 11/27/16 18:13 Dose: 10 ml Discontinued Medications Aspirin (Aspirin) 324 mg PO ONETIME ONE Stop: 11/28/16 17:31 Last Admin: 11/28/16 17:26 Dose: 324 mg Sodium Chloride (Normal Saline) 1,000 mls @ 125 mls/hr IV ASDIRECTED [facility] Stop: 11/28/16 04:44 Last Admin: 11/27/16 21:04 Dose: 125 mls/hr Lisinopril (Prinivil) 10 mg PO ONETIME ONE Stop: 11/29/16 17:31 Last Admin: 11/29/16 17:14 Dose: 10 mg Sodium Chloride (Saline Flush) 10 ml FLUSH ASDIRECTED PRN PRN Reason: Keep Vein Open Last Admin: 11/27/16 18:14 Dose: 10 ml - Exam Quality Assessment: No: supplemental oxygen General: alert, oriented, cooperative, no acute distress HEENT: Pupils equal Neck: supple Lungs: Normal respiratory effort Cardiovascular: Regular Rate, Regular Rhythm Abdomen: soft, no distension Extremities: no edema, no cyanosis Skin: warm, dry Neurological: no new focal deficit. No: normal speech (slight dysarthria), strength equal bilateral (left hand slightly stronger than the right. ) Psy/Mental Status: alert, normal affect - Problem List & Annotations (1) Seizure SNOMED Code(s): 48270343 Code(s): R56.9 - UNSPECIFIED CONVULSIONS Status: Acute Current Visit: No (2) Diabetes mellitus type 2 in obese SNOMED Code(s): 70837432 Code(s): E11.69 - TYPE 2 DIABETES MELLITUS WITH OTHER SPECIFIED COMPLICATION ; E66.9 - OBESITY, UNSPECIFIED Status: Chronic Current Visit: Yes (3) Dysarthria SNOMED Code(s): 2583605 Code(s): R47.1 - DYSARTHRIA AND ANARTHRIA Status: Acute Current Visit: Yes - Problem List Review Problem List Initiated/Reviewed/Updated: Yes - My Orders Last 24 Hours: My Active Orders 11/28/16 17:00 Admission Status [Patient Status] [ADT] Routine 11/29/16 10:39 OT Evaluation and Treatment [CONS] Routine 11/30/16 09:00 Lisinopril [Prinivil] 10 mg PO DAILY - Plan Plan:: Assessment and plan - Left [place] CVA - signs and symptoms including dysarthria, subtle right sided weakness, dizziness and gait instability. Tolerating increased statin and ASA. BP moderately elevated. 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 Last seizure was one and a half years ago. No recurrence. -Continue Keppra 1000 mg twice daily -Lorazepam as needed if he has additional seizures -Discontinue Cardiac monitoring -Follow-up Keppra level sent from the emergency room earlier in the day -Aspirin Type 2 diabetes mellitus - on a single oral agent at this time. Sugars have been mildly elevated. -Continue home medications Maintenance issues - - DVT prophylaxis - mechanical - GI prophylaxis - not indicated - Nutrition - consistent carbohydrates Admission justification - patient was changed to inpatient status with new cerebrovascular accident. Disposition - anticipate discharge to rehab, acute vs sub-acute Jack Neff M.D.
[2016-11-29] MEDS ORDERED: LORazepam 1 MG Tab PO PRN (19:53)
[2016-11-29] MEDS: Acetaminophen 325 MG Tab PO PRN (20:30)
[2016-11-29] MEDS: atorvaSTATin 20 MG Tab PO SCH (20:30)
[2016-11-29] MEDS: oxyCODONE 5 MG Tab PO PRN (20:31)
[2016-11-30] MEDS: Acetaminophen 325 MG Tab PO PRN ×2 (05:23→21:11)
[2016-11-30] MEDS: oxyCODONE 5 MG Tab PO PRN ×3 (05:24→21:13)
[2016-11-30] MEDS: Aspirin 81 MG Tab.EC PO SCH (08:28)
[2016-11-30] MEDS: Lisinopril 10 MG Tab PO SCH (08:28)
[2016-11-30] MEDS: levETIRAcetam 250 MG Tab PO SCH ×2 (08:29→21:12)
[2016-11-30] MEDS: glipiZIDE 5 MG Tab PO SCH (08:29)
[2016-11-30] MEDS ORDERED: predniSONE 20 MG Tab PO ONE (09:45)
--- NOTE | 2016-11-30 10:38 | PCM.PN ---
- General Info Date of Service: 11/30/16 Functional Status: Reports: pain controlled, tolerating diet - Review of Systems General: Reports: Weakness Musculoskeletal: Reports: joint pain (right wrist and right knee) Neurological: Reports: Difficulty Walking, Weakness Systems Review Comment:: no acute events but blood pressures have been somewhat labile. He did improve initially with starting lisinopril but have risen again. Still having trouble with right arm and leg weakness. He has increased pain and swelling in his right wrist as well as his right knee today. No fevers. Speech seems a little bit better today. - Patient Data Vitals - most recent: Last Vital Signs Temp 36.9 C 11/30/16 09:00 Pulse 86 11/30/16 09:00 Resp 20 11/30/16 03:24 BP 175/85 H 11/30/16 09:00 Pulse Ox 91 L 11/30/16 03:24 Weight - most recent: 98.566 kg I&O - last 24 hours: Intake & Output 11/29/16 11/30/16 11/30/16 22:59 06:59 14:59 Intake Total 360 Output Total 350 150 Balance 10 -150 Med Orders - Current: Current Medications Acetaminophen (Tylenol) 650 mg PO Q4H PRN PRN Reason: Pain (Mild 1-3)/fever Last Admin: 11/30/16 05:23 Dose: 650 mg Aspirin (Halfprin) 81 mg PO DAILY [facility] Last Admin: 11/30/16 08:28 Dose: 81 mg Atorvastatin Calcium (Lipitor) 80 mg PO BEDTIME [facility] Last Admin: 11/29/16 20:30 Dose: 80 mg Glipizide (Glucotrol) 10 mg PO DAILY [facility] Last Admin: 11/30/16 08:29 Dose: 10 mg Levetiracetam (Keppra) 1,000 mg PO BID [facility] Last Admin: 11/30/16 08:29 Dose: 1,000 mg Lisinopril (Prinivil) 10 mg PO DAILY [facility] Last Admin: 11/30/16 08:28 Dose: 10 mg Lisinopril (Prinivil) 10 mg PO ONETIME ONE Stop: 11/30/16 10:51 Lorazepam (Ativan) 1 - 2 mg IVPUSH Q4H PRN PRN Reason: Seizures Lorazepam (Ativan) 1 mg PO Q2H PRN PRN Reason: Agitation Ondansetron HCl (Zofran Odt) 4 mg PO Q6H PRN PRN Reason: Nausea able to take PO Oxycodone HCl (Oxycodone) 5 - 10 mg PO Q4H PRN PRN Reason: Pain Last Admin: 11/30/16 09:46 Dose: 5 mg Polyethylene Glycol (Miralax) 17 gm PO DAILY PRN PRN Reason: Constipation Prednisone (Prednisone) 20 mg PO WITHBREAKFAST PATY Sodium Chloride (Saline Flush) 10 ml FLUSH ASDIRECTED PRN PRN Reason: Keep Vein Open Last Admin: 11/27/16 18:13 Dose: 10 ml Discontinued Medications Aspirin (Aspirin) 324 mg PO ONETIME ONE Stop: 11/28/16 17:31 Last Admin: 11/28/16 17:26 Dose: 324 mg Sodium Chloride (Normal Saline) 1,000 mls @ 125 mls/hr IV ASDIRECTED PATY Stop: 11/28/16 04:44 Last Admin: 11/27/16 21:04 Dose: 125 mls/hr Lisinopril (Prinivil) 10 mg PO ONETIME ONE Stop: 11/29/16 17:31 Last Admin: 11/29/16 17:14 Dose: 10 mg Prednisone (Prednisone) 20 mg PO ONETIME ONE Stop: 11/30/16 09:46 Last Admin: 11/30/16 09:52 Dose: 20 mg Sodium Chloride (Saline Flush) 10 ml FLUSH ASDIRECTED PRN PRN Reason: Keep Vein Open Last Admin: 11/27/16 18:14 Dose: 10 ml - Exam Quality Assessment: No: supplemental oxygen General: alert, oriented, cooperative, no acute distress HEENT: Pupils equal Neck: supple Lungs: Normal respiratory effort Cardiovascular: Regular Rate, Regular Rhythm Abdomen: soft, no distension Extremities: no edema, other (right wrist warm, tender and swollen. Right knee warm and tender. ) Skin: warm, dry Neurological: No: normal gait, normal speech (mild remaining dysarthria ) Psy/Mental Status: alert, normal affect - Problem List & Annotations (1) Cerebrovascular accident (CVA) of left pontine structure SNOMED Code(s): 558527787, 311802220, 546997114 Code(s): I63.50 - CEREB INFRC DUE TO UNSP OCCLS OR STENOS OF UNSP CEREB ARTERY Status: Acute Current Visit: Yes (2) Seizure SNOMED Code(s): 35541585 Code(s): R56.9 - UNSPECIFIED CONVULSIONS Status: Acute Current Visit: No (3) Diabetes mellitus type 2 in obese SNOMED Code(s): 78887275 Code(s): E11.69 - TYPE 2 DIABETES MELLITUS WITH OTHER SPECIFIED COMPLICATION ; E66.9 - OBESITY, UNSPECIFIED Status: Chronic Current Visit: Yes (4) Dysarthria SNOMED Code(s): 1304960 Code(s): R47.1 - DYSARTHRIA AND ANARTHRIA Status: Acute Current Visit: Yes - Problem List Review Problem List Initiated/Reviewed/Updated: Yes - My Orders Last 24 Hours: My Active Orders 11/29/16 10:39 OT Evaluation and Treatment [CONS] Routine 11/30/16 09:00 Lisinopril [Prinivil] 10 mg PO DAILY 11/30/16 10:35 Lisinopril [Prinivil] 10 mg PO ONETIME ONE 12/01/16 05:00 BASIC METABOLIC PANEL,BMP [CHEM] Timed CBC W/O DIFF,HEMOGRAM [HEME] Timed (1) 12/01/16 08:00 predniSONE 20 mg PO WITHBREAKFAST - Plan Plan:: Assessment and plan - Left Pontine CVA - signs and symptoms including dysarthria, subtle right sided weakness, dizziness and gait instability. Tolerating increased statin and ASA. BP moderately elevated but has been a little better following initiation of lisinopril. -cont increased statin -cont ASA daily -continue lisinopril, increase dosing this morning -PT, OT, STRATEGY CONSULTANT -anticipate d/c to acute rehab vs sub-acute Possible pseudogout - swelling, warmth and tenderness of the right wrist in the. No history of gout. -Prednisone 20 mg daily x3 days Breakthrough seizures - history of traumatic brain injury approximately 10 years ago. Last seizure was one and a half years ago. No recurrence. -Continue Keppra 1000 mg twice daily -Lorazepam as needed if he has additional seizures -Follow-up Keppra level sent from the emergency room Type 2 diabetes mellitus - on a single oral agent at this time. Sugars have been mildly elevated. -Continue home medications Maintenance issues - - DVT prophylaxis - mechanical - GI prophylaxis - not indicated - Nutrition - consistent carbohydrates Admission justification - patient was changed to inpatient status with new cerebrovascular accident. Disposition - anticipate discharge to rehab, acute vs sub-acute tomorrow since we are adjusting blood pressure medications today Jack Neff M.D.
[2016-11-30] MEDS ORDERED: Lisinopril 10 MG Tab PO ONE (10:50)
[2016-11-30] MEDS: atorvaSTATin 20 MG Tab PO SCH (21:12)
[2016-12-01] MEDS: Acetaminophen 325 MG Tab PO PRN (06:21)
[2016-12-01] MEDS: oxyCODONE 5 MG Tab PO PRN ×2 (06:22→10:22)
[2016-12-01] MEDS ORDERED: predniSONE 20 MG Tab PO SCH (08:00)
[2016-12-01] MEDS: levETIRAcetam 250 MG Tab PO SCH (08:21)
[2016-12-01] MEDS: Aspirin 81 MG Tab.EC PO SCH (08:21)
[2016-12-01] MEDS: Lisinopril 10 MG Tab PO SCH (08:22)
[2016-12-01] MEDS: glipiZIDE 5 MG Tab PO SCH (08:22)
[2016-12-01 08:29] VITALS: BP 142/82
--- NOTE | 2016-12-01 10:00 | PCM.DCSUM1 ---
Discharge Summary - Hospital Course Brief History: 71-year-old male with history of seizure disorder secondary to traumatic brain injury, diabetes mellitus type 2 and secondary hypertension who presented with breakthrough seizures. He was admitted for observation. - Discharge Data Discharge Date: 12/01/16 Discharge Disposition: DC/Tfer to SNF 03 Condition: Fair - Discharge Diagnosis/Problem(s) (1) Cerebrovascular accident (CVA) of left pontine structure SNOMED Code(s): 815697027, 781228771, 775928427 ICD Code: I63.50 - CEREB INFRC DUE TO UNSP OCCLS OR STENOS OF UNSP CEREB ARTERY Status: Acute Current Visit: Yes Problem Details: Left jorden-tangela (2) Seizure SNOMED Code(s): 22185065 ICD Code: R56.9 - UNSPECIFIED CONVULSIONS Status: Acute Current Visit: No (3) Diabetes mellitus type 2 in obese SNOMED Code(s): 80989983 ICD Code: E11.69 - TYPE 2 DIABETES MELLITUS WITH OTHER SPECIFIED COMPLICATION ; E66.9 - OBESITY, UNSPECIFIED Status: Chronic Current Visit: Yes (4) Dysarthria SNOMED Code(s): 0906874 ICD Code: R47.1 - DYSARTHRIA AND ANARTHRIA Status: Acute Current Visit: Yes - Patient Summary/Data Consults: Consultations 11/29/16 10:39 OT Evaluation and Treatment [CONS] Routine Please Evaluate and Treat. OT Reason for Consult: stroke This query below is only for informational purposes and is not editable. Admission Diagnosis/Problem: CVA, Cerebrovascular accident Hospital Course: Jabier presented to the emergency room on November 27 with his initial breakthrough seizure. Workup in the emergency room was unremarkable and the patient wished to go home. He had a second seizure later in the day and again the workup in the emergency room was unremarkable but he was admitted for observation. At the time of admission he had some mild dysarthria but no obvious neurologic deficits such as weakness. He had very mild confusion that was attributed to a postictal state at the time of admission. There were no acute events overnight following admission and there were no recurrent seizures. The morning after admission his dysarthria persists and now he has a very slight right facial droop. This prompted an MRI which the patient initially declined but later agreed to have completed. The MRI of the brain showed a stroke in the left jorden- tangela which was fairly extensive. We were now more than 24 hours out from onset of symptoms and likely the initial stroke. We started him on an aspirin as he had not been taking one previously and increase his atorvastatin from 20 mg up to 80 mg. Blood pressures were fairly well controlled with systolic pressures in the 150s at this point and we elected not to initiate medication the day after admission. His pressures did rise some overnight and we started him on low -dose lisinopril the next morning and have been titrating this medication since that time. We have asked physical therapy to see him regarding strength and potential discharge plans. The thought was that he would need either subacute or acute rehabilitation to recover from his stroke. Patient has elected to undergo subacute rehabilitation at [facility]. He'll be working with physical therapy, occupational therapy as well as speech and language pathology. His deficits at the time of discharge include moderate weakness of the right hand and wrist as well as some weakness in the right leg. He has very mild residual dysarthria. He has significant difficulties with his balance and requires the assist of 2 people right now to get up out of the chair or out of bed. He has been eating fairly well utilizing silverware with large handles. We were unable to complete the entire workup for his stroke during hospital stay and he would benefit from an outpatient echocardiogram. Telemetry did not reveal any arrhythmias and I suspect this was more of a thrombotic type stroke rather than an embolic stroke. The day before discharge he also noted some pain, swelling and tenderness in his right wrist and right knee. I did start him on a 3 day course of prednisone with possible pseudogout. He will need 1 more dose after hospital discharge. Medications at the time of discharge -Atorvastatin 80 mg daily at bedtime -lisinopril 20 mg twice daily -Aspirin 81 mg daily -Prednisone 20 mg once daily for 1 more dose - Patient Instructions Diet: Diabetic Diet (1800 calorie ADA diet) Activity: As Tolerated Activity, Other: Up with assistance Driving: Do Not Drive (if taking pain pills) Showering/Bathing: May Shower Notify Provider of: Fever, Increased Pain, Nausea and/or Vomiting Other/Special Instructions: 1. You were in the hospital initially for observation following a second seizure without unclear trigger. With additional observation we noted progressive neurologic deficits that prompted an MRI and revealed a stroke in the left side of your Tangela. This has resulted in some difficulty with speaking as well as weakness on the right side of her body. We have started you on a baby aspirin and increased your atorvastatin tell produced the risk of another stroke. We have also started you on lisinopril to help reduce her blood pressure and further reduce your stroke risk. Because of the ongoing weakness I recommend subacute rehabilitation and the plan is for discharge to [facility] in [place], [place]. 2. Referral to physical and occupational therapy for strengthening following a left-sided stroke. 3. Referral to speech and language pathology for additional speech rehabilitation following a left sided stroke with dysarthria. 4. Diet - 1800 ADA diabetic diet. 5. CODE STATUS - full code. 6. Please check blood sugars as needed if there are concerns for hypoglycemia. 7. Please seek medical attention if you develop fever greater than 101, have further decline in your strength, you develop nausea with vomiting, persistent diarrhea or develop sudden onset of chest pain. - Discharge Plan Prescriptions/Med Rec: Acetaminophen [Tylenol] 650 mg PO Q4H PRN #100 tablet PRN Reason: Pain/Fever Aspirin [Halfprin] 81 mg PO DAILY #100 tab.ec Lisinopril 20 mg PO BID #60 tablet Prednisone [IJD: predniSONE] 20 mg PO WITHBREAKFAST #1 tablet atorvaSTATin [Lipitor] 80 mg PO BEDTIME #30 tablet oxyCODONE 5 - 10 mg PO Q4H PRN #90 tablet PRN Reason: Pain Home Medications: Home Meds levETIRAcetam [Levetiracetam] 1,000 mg PO BID 05/17/16 [History] Ibuprofen [Motrin] 600 mg PO TID PRN #30 tab 11/24/16 [Rx] glipiZIDE [Glipizide] 10 mg PO DAILY 11/27/16 [History] Acetaminophen [Tylenol] 650 mg PO Q4H PRN #100 tablet 12/01/16 [Rx] Aspirin [Halfprin] 81 mg PO DAILY #100 tab.ec 12/01/16 [Rx] Lisinopril 20 mg PO BID #60 tablet 12/01/16 [Rx] Prednisone [IJD: predniSONE] 20 mg PO WITHBREAKFAST #1 tablet 12/01/16 [Rx] atorvaSTATin [Lipitor] 80 mg PO BEDTIME #30 tablet 12/01/16 [Rx] oxyCODONE 5 - 10 mg PO Q4H PRN #90 tablet 12/01/16 [Rx] Patient Handouts: Lisinopril tablets, Ischemic Stroke Treated Without Warfarin Referrals: Yao Catalan MD [Primary Care Provider] - (Follow-up with Dr. Catalan after your stay at [facility] - you will need diabetic follow-up at that time) - Discharge Summary/Plan Comment DC Time >30 min.: Yes (60 - complex NH discharge ) - Patient Data Vitals - Most Recent: Last Vital Signs Temp 36.3 C 12/01/16 08:27 Pulse 82 12/01/16 08:27 Resp 18 12/01/16 08:27 BP 142/82 H 12/01/16 08:27 Pulse Ox 90 L 11/30/16 21:00 Weight - Most Recent: 98.566 kg I&O - Last 24 hours: Intake & Output 11/30/16 12/01/16 12/01/16 22:59 06:59 14:59 Intake Total 720 Output Total 450 325 Balance 270 -325 Lab Results - Last 24 hrs: Laboratory Results - last 24 hr 12/01/16 12/01/16 Range/Units 05:25 05:25 WBC 14.4 H (4.5-11.0) K/uL RBC 4.51 (4.30-5.90) M/uL Hgb 12.8 (12.0-15.0) g/dL Hct 38.8 L (40.0-54.0) % MCV 86 (80-98) fL MCH 28 (27-31) pg MCHC 33 (32-36) % Plt Count 254 (150-400) K/uL Sodium 141 (140-148) mmol/L Potassium 4.1 (3.6-5.2) mmol/L Chloride 103 (100-108) mmol/L Carbon Dioxide 33 H (21-32) mmol/L Anion Gap 9.1 (5.0-14.0) mmol/L BUN 20 H (7-18) mg/dL Creatinine 1.1 (0.8-1.3) mg/dL Est Cr Clr Drug Dosing 54.36 mL/min Estimated GFR (MDRD) > 60 (>60) Glucose 185 H (74-106) mg/dL Calcium 8.8 (8.5-10.1) mg/dL Med Orders - Current: Current Medications Acetaminophen (Tylenol) 650 mg PO Q4H PRN PRN Reason: Pain (Mild 1-3)/fever Last Admin: 12/01/16 06:21 Dose: 650 mg Aspirin (Halfprin) 81 mg PO DAILY [facility] Last Admin: 12/01/16 08:21 Dose: 81 mg Atorvastatin Calcium (Lipitor) 80 mg PO BEDTIME [facility] Last Admin: 11/30/16 21:12 Dose: 80 mg Glipizide (Glucotrol) 10 mg PO DAILY [facility] Last Admin: 12/01/16 08:22 Dose: 10 mg Levetiracetam (Keppra) 1,000 mg PO BID [facility] Last Admin: 12/01/16 08:21 Dose: 1,000 mg Lisinopril (Prinivil) 10 mg PO DAILY [facility] Last Admin: 12/01/16 08:22 Dose: 10 mg Lorazepam (Ativan) 1 - 2 mg IVPUSH Q4H PRN PRN Reason: Seizures Lorazepam (Ativan) 1 mg PO Q2H PRN PRN Reason: Agitation Ondansetron HCl (Zofran Odt) 4 mg PO Q6H PRN PRN Reason: Nausea able to take PO Oxycodone HCl (Oxycodone) 5 - 10 mg PO Q4H PRN PRN Reason: Pain Last Admin: 12/01/16 06:22 Dose: 5 mg Polyethylene Glycol (Miralax) 17 gm PO DAILY PRN PRN Reason: Constipation Prednisone (Prednisone) 20 mg PO WITHBREAKFAST [facility] Last Admin: 12/01/16 08:22 Dose: 20 mg Sodium Chloride (Saline Flush) 10 ml FLUSH ASDIRECTED PRN PRN Reason: Keep Vein Open Last Admin: 11/27/16 18:13 Dose: 10 ml Discontinued Medications Aspirin (Aspirin) 324 mg PO ONETIME ONE Stop: 11/28/16 17:31 Last Admin: 11/28/16 17:26 Dose: 324 mg Sodium Chloride (Normal Saline) 1,000 mls @ 125 mls/hr IV ASDIRECTED [facility] Stop: 11/28/16 04:44 Last Admin: 11/27/16 21:04 Dose: 125 mls/hr Lisinopril (Prinivil) 10 mg PO ONETIME ONE Stop: 11/29/16 17:31 Last Admin: 11/29/16 17:14 Dose: 10 mg Lisinopril (Prinivil) 10 mg PO ONETIME ONE Stop: 11/30/16 10:51 Last Admin: 11/30/16 10:39 Dose: 10 mg Prednisone (Prednisone) 20 mg PO ONETIME ONE Stop: 11/30/16 09:46 Last Admin: 11/30/16 09:52 Dose: 20 mg Sodium Chloride (Saline Flush) 10 ml FLUSH ASDIRECTED PRN PRN Reason: Keep Vein Open Last Admin: 11/27/16 18:14 Dose: 10 ml - Exam General: Reports: alert, oriented, cooperative, no acute distress HEENT: Reports: Pupils equal Neck: Reports: supple Lungs: Reports: Normal respiratory effort Cardiovascular: Reports: Regular Rate, Regular Rhythm Abdomen: Reports: soft, no distension Extremities: Reports: no edema, other (right wrist is mildly warm, mildly swollen, no erythema. Mild ttp over joint. Right knee appears and feels normal. No warmth or tenderness. ) Skin: Reports: warm, dry Neurological: Reports: sensation intact. Denies: normal gait, normal speech ( mild dysarthria with impaired production and very mild word finding troubles), strength equal bilateral (right wrist and hand weakness as well as mild distal right lower ext weakness) Psy/Mental Status: Reports: alert, normal affect *Q Meaningful Use (DIS) - VTE *Q VTE Criteria *Q: - Stroke *Q Stroke Criteria *Q: - AMI *Q AMI Criteria *Q:
== END 2016-12-01 13:09 | DRG 65 ==
LOC: JP.ED 16:46 → JP.ICU 19:41 → OBSVTOIN 11-29 05:00 → INTOOBSV 11-29 05:00 → OBSVTOIN 11-29 08:49 → UNDODISIN 12-01 13:09
PROVIDERS: ADMIT Internal Medicine; ATTEND Internal Medicine
DX: I63.50 Cerebral infarction due to unspecified occlusion or stenosis of unspecified cerebral artery (principal); G81.91 Hemiplegia, unspecified affecting right dominant side; R47.1 Dysarthria and anarthria; E11.9 Type 2 diabetes mellitus without complications; Z79.84 Long term (current) use of oral hypoglycemic drugs; G40.909 Epilepsy, unspecified, not intractable, without status epilepticus; Z87.820 Personal history of traumatic brain injury; W18.30XA Fall on same level, unspecified, initial encounter; Y92.009 Unspecified place in unspecified non-institutional (private) residence as the place of occurrence of the external cause; E78.00 Pure hypercholesterolemia, unspecified; H54.7 Unspecified visual loss; Z79.52 Long term (current) use of systemic steroids; Z88.1 Allergy status to other antibiotic agents; Z96.659 Presence of unspecified artificial knee joint; M11.231 Other chondrocalcinosis, right wrist; M11.261 Other chondrocalcinosis, right knee; Z79.82 Long term (current) use of aspirin
CPT/HCPCS: 36415 ×3; 70450; 70551; 80048; 80053 ×2; 80177; 80305; 81001; 83735 ×2; 85025 ×2; 85027; 85610; 86140; 93005; 93010; 96361 ×2; 96365; 99219; 99225; 99284 ×2; 99285; A9270 ×9; G0378; G0480; J7040; J7050 ×2; 92507-GN; 92522-GN; 97110-GO; 97110-GP; 97112-GP; 97162-GP; 97167-GO; 97530-GP; 97535-GP

== ENCOUNTER 2020-10-07 19:51 | Emergency (ER) | payer MEDICARE, MEDICAID ==
[2020-10-07 20:08] VITALS: BP 163/79; PULSE 47
[2020-10-07] MEDS ORDERED: Ketorolac 30 MG/ML SDV IM ONE (20:39)
--- NOTE | 2020-10-07 21:26 | EDM.PDOC ---
ED HPI GENERAL MEDICAL PROBLEM - General Chief Complaint: Headache Stated Complaint: HEAD AND NECK PAIN Time Seen by Provider: 10/07/20 20:23 Source of Information: Reports: Patient History Limitations: Reports: No Limitations - History of Present Illness INITIAL COMMENTS - FREE TEXT/NARRATIVE: Haroldo is a 75-year-old male presenting to the ED for bilateral neck pain and stiffness darted several days ago when he awoke with neck stiffness. Since then, the spasm has increased and is now causing a tension type headache. He denies any injury. He does have a history of a traumatic brain injury. His caregiver has been trying to treat him with tramadol and [place] that he takes for other chronic pain. They did not have any muscle relaxants on board so they elected to come into the ED to be seen today. He denies any new onset of numbness or tingling or weakness in the upper or lower extremities. He has significant decrease in range of motion of his neck. He denies any fever or chills. He did get his second Covid vaccine 3 days ago. Treatments DEBT AND BUDGET COUNSELOR: Reports: Acetaminophen, Other (see below) Other Treatments DEBT AND BUDGET COUNSELOR: tramadol and norco at home Posterior Neck Pain Score (Numeric/FACES): 10 - Related Data Allergies Allergy/AdvReac Type Severity Reaction Status Date / Time ciprofloxacin [From Cipro] Allergy Swelling Verified 07/06/20 13:45 Home Meds: Home Meds levETIRAcetam [Levetiracetam] 1,000 mg PO BID 05/17/16 [History] Acetaminophen [Tylenol] 650 mg PO Q4H PRN #100 tablet 12/01/16 [Rx] Aspirin [Halfprin] 81 mg PO DAILY #100 tab.ec 12/01/16 [Rx] Carbidopa/Levodopa [Carbidopa-Levo 25-100 MG ODT] 1 tab PO BEDTIME 06/22/20 [History] Citalopram [Citalopram HBr] 10 mg PO DAILY 06/22/20 [History] Dulaglutide [Trulicity] 1.5 mg SQ .WEEKLY 06/22/20 [History] Hydrocodone/Acetaminophen [Hydrocodon-Acetaminophen 5-325] 1 tab PO Q8H PRN 06/22/20 [History] Lisinopril 40 mg PO BID 06/22/20 [History] Potassium Chloride 20 meq PO DAILY 06/22/20 [History] hydroCHLOROthiazide [Hydrochlorothiazide] 25 mg PO DAILY 06/22/20 [History] traMADol [Ultram] 50 mg PO Q8H PRN 06/22/20 [History] methocarbamoL [Methocarbamol] 750 mg PO QID PRN #40 tablet 10/07/20 [Rx] Past Medical History HEENT History: Reports: Hard of Hearing, Impaired Vision Cardiovascular History: Reports: High Cholesterol Neurological History: Reports: Brain Injury, CVA, Seizure, Other (See Below) Other Neuro History: epilepsy Psychiatric History: Reports: Depression Endocrine/Metabolic History: Reports: Diabetes, Type II - Infectious Disease History Infectious Disease History: Reports: Chicken Pox, Shingles - Past Surgical History HEENT Surgical History: Reports: Cataract Surgery GI Surgical History: Reports: Colonoscopy Musculoskeletal Surgical History: Reports: Knee Replacement Social & Family History - Tobacco Use Tobacco Use Status *Q: Never Tobacco User - Caffeine Use Caffeine Use: Reports: Coffee - Recreational Drug Use Recreational Drug Use: No ED ROS GENERAL - Review of Systems Review Of Systems: See Below Constitutional: Reports: No Symptoms HEENT: Reports: No Symptoms Respiratory: Reports: No Symptoms Cardiovascular: Reports: No Symptoms Endocrine: Reports: No Symptoms GI/Abdominal: Reports: No Symptoms : Reports: No Symptoms Musculoskeletal: Reports: Neck Pain, Muscle Stiffness (Bilateral posterior paraspinal muscle stiffness) Skin: Reports: No Symptoms Neurological: Reports: Headache Psychiatric: Reports: No Symptoms Hematologic/Lymphatic: Reports: No Symptoms Immunologic: Reports: No Symptoms ED EXAM, GENERAL - Physical Exam Exam: See Below Exam Limited By: No Limitations General Appearance: Alert, Anxious, Moderate Distress Eye Exam: Bilateral Eye: EOMI, PERRL Throat/Mouth: Normal Inspection, Normal Lips, Normal Oropharynx, Normal Voice, No Airway Compromise Head: Atraumatic, Normocephalic Neck: Limited Range of Motion (Marked reduction in range of motion in any direction secondary to pain and muscle spasm.), Tender Lateral (Bilateral posterior paraspinal muscle spasm and tenderness). No: Lymphadenopathy (R), Lymphadenopathy (L), Tender Midline Respiratory/Chest: No Respiratory Distress, Lungs Clear, Normal Breath Sounds Neurological: Alert, Oriented, Normal Cognition, No Motor/Sensory Deficits Course - Vital Signs Last Recorded V/S: Last Vital Signs Temp 35.7 C L 10/07/20 21:02 Pulse 47 L 10/07/20 21:02 Resp 16 10/07/20 21:02 BP 163/79 H 10/07/20 21:02 Pulse Ox 93 L 10/07/20 21:02 - Orders/Labs/Meds Orders: Active Orders 24 hr Category Date Time Status methocarbamoL [Robaxin] Med 10/07/20 22:00 Active 1,000 mg PO QID Medication Orders Methocarbamol (Methocarbamol 500 Mg Tab) 1,000 mg PO QID PATY Last Admin: 10/07/20 20:49 Dose: 1,000 mg Documented by: VEENA Labs: Laboratory Tests 10/07/20 10/07/20 Range/Units 20:39 20:39 WBC 12.3 H (4.5-11.0) K/uL RBC 5.14 (4.30-5.90) M/uL Hgb 16.0 H D (12.0-15.0) g/dL Hct 46.9 (40.0-54.0) % MCV 91 (80-98) fL MCH 31 (27-31) pg MCHC 34 (32-36) % Plt Count 262 (150-400) K/uL Neut % (Auto) 58 (36-66) % Lymph % (Auto) 30 (24-44) % Duval % (Auto) 10 H (2-6) % Eos % (Auto) 2 (2-4) % Baso % (Auto) 0 (0-1) % C-Reactive Protein 1.89 H (0.0-0.3) mg/dL Meds: Medications Generic Name Dose Route Start Last Admin Trade Name Freq PRN Reason Stop Dose Admin Methocarbamol 1,000 mg 10/07/20 22:00 10/07/20 20:49 Methocarbamol 500 Mg Tab PO 1,000 mg QID PATY Administration Discontinued Medications Generic Name Dose Route Start Last Admin Trade Name Freq PRN Reason Stop Dose Admin Ketorolac Tromethamine 30 mg 10/07/20 20:39 10/07/20 20:49 Ketorolac 30 Mg/Ml Sdv IM 10/07/20 20:40 30 mg ONETIME ONE Administration - Re-Assessments/Exams Free Text/Narrative Re-Assessment/Exam: 10/07/20 21:32 Haroldo presents to the ED with acute torticollis over the last 2 days. This is 3 days out from his COVID-19 second vaccine. It is possible he has some myositis secondary to the Covid vaccine, however, it is also possible that this is just positional torticollis. The patient refuses much of the work- up. He was given Toradol 30 mg IM and methocarbamol 1000 grams by mouth. Discussed other causes for neck stiffness including meningitis. He declines work-up of this stating he has had no fever. He has not experienced any new neurologic symptoms except for the mild headache likely tension type secondary to the muscle spasm. He does resist movement of the head in fact flexion or extension, lateral rotation, or lateral flexion due to pain. His labs are reviewed and show normal CBC except a leukocyte count of 12.3 and a CRP highly elevated at 1.37. This is likely due to the recent vaccination. The plan is to treat the patient with methocarbamol 750 mg 4 times daily, encouraged him to ice the neck 15 to 20 minutes to reduce some of the spasm, and he may continue to take his tramadol and [place] for pain control. He states he did not get much relief from the Toradol so we will not continue this on an oral basis. Indications return to the ED were discussed and he was discharged in satisfactory condition.. Departure - Departure Time of Disposition: 21:25 Disposition: Home, Self-Care 01 Clinical Impression: Torticollis, acute - Discharge Information Prescriptions: methocarbamoL [Methocarbamol] 750 mg PO QID PRN #40 tablet PRN Reason: Muscle Spasm Instructions: Acute Torticollis, Adult Referrals: Yao Catalan MD [Primary Care Provider] - Forms: ED Department Discharge Care Plan Goals: Would encourage icing of the neck to help reduce the muscle spasm. You may continue to use your tramadol and [place] as needed for pain control. I have prescribed methocarbamol, a potent muscle relaxant that you may take up to 4 times a day to help reduce the spasm of the neck muscles. Sepsis Event Note (ED) - Evaluation Sepsis Screening Result: No Definite Risk - Focused Exam Vital Signs: Vital Signs Temp Pulse Resp BP Pulse Ox 10/07/20 21:02 35.7 C L 47 L 16 163/79 H 93 L 10/07/20 20:07 35.7 C L 47 L 16 163/79 H 93 L - Problem List & Annotations (1) Torticollis, acute SNOMED Code(s): 24416590, 71104537 Code(s): M43.6 - TORTICOLLIS Status: Acute Priority: Medium Current Visit: Yes - Problem List Review Problem List Initiated/Reviewed/Updated: Yes - My Orders Last 24 Hours: My Active Orders 10/07/20 22:00 methocarbamoL [Robaxin] 1,000 mg PO QID - Assessment/Plan Last 24 Hours: My Active Orders 10/07/20 22:00 methocarbamoL [Robaxin] 1,000 mg PO QID
[2020-10-07] MEDS ORDERED: Methocarbamol 500 MG Tab PO SCH (22:00)
== END 2020-10-07 21:37 | disposition home or self-care (01) ==
LOC: JP.ED 19:51
DX: M43.6 Torticollis (principal); G40.909 Epilepsy, unspecified, not intractable, without status epilepticus; Z88.1 Allergy status to other antibiotic agents; Z86.73 Personal history of transient ischemic attack (TIA), and cerebral infarction without residual deficits; Z79.82 Long term (current) use of aspirin; Z79.84 Long term (current) use of oral hypoglycemic drugs
CPT/HCPCS: 36415; 85025; 86140; 96372; 99283; A9270; J1885

== ENCOUNTER 2020-10-09 01:36 | Emergency (ER) | payer MEDICARE, MEDICAID ==
[2020-10-09 01:42] VITALS: BP 151/94; PULSE 76
[2020-10-09] MEDS ORDERED: fentaNYL 100 MCG/2 ML SDV IM ONE (02:06)
--- NOTE | 2020-10-09 02:19 | EDM.PDOC ---
ED HPI GENERAL MEDICAL PROBLEM - General Chief Complaint: Neck Problem Stated Complaint: NECK PAIN Time Seen by Provider: 10/09/20 02:00 Source of Information: Reports: Patient, Family, Old Records, RN Notes Reviewed History Limitations: Reports: No Limitations - History of Present Illness INITIAL COMMENTS - FREE TEXT/NARRATIVE: 75-year-old gentleman presents emergency department with a complaint of neck pain, he was in the emergency department last night same complaint did have a evaluation of blood work which was unrevealing Toradol did not provide any relief was initially written for some Robaxin however his insurance company did not provide this. He is continue to use hydrocodone and tramadol without any relief baclofen he states it does not help him at all but his caregiver admits that it allows him to sleep for 2 to 3 hours at a time but he awakes he still in pain, no new neuro complaints neck pain Pain Score (Numeric/FACES): 12 - Related Data Allergies Allergy/AdvReac Type Severity Reaction Status Date / Time ciprofloxacin [From Cipro] Allergy Swelling Verified 10/09/20 01:39 Home Meds: Home Meds levETIRAcetam [Levetiracetam] 1,000 mg PO BID 05/17/16 [History] Acetaminophen [Tylenol] 650 mg PO Q4H PRN #100 tablet 12/01/16 [Rx] Aspirin [Halfprin] 81 mg PO DAILY #100 tab.ec 12/01/16 [Rx] Carbidopa/Levodopa [Carbidopa-Levo 25-100 MG ODT] 1 tab PO BEDTIME 06/22/20 [History] Citalopram [Citalopram HBr] 10 mg PO DAILY 06/22/20 [History] Dulaglutide [Trulicity] 1.5 mg SQ .WEEKLY 06/22/20 [History] Hydrocodone/Acetaminophen [Hydrocodon-Acetaminophen 5-325] 1 tab PO Q8H PRN 06/22/20 [History] Lisinopril 40 mg PO BID 06/22/20 [History] Potassium Chloride 20 meq PO DAILY 06/22/20 [History] hydroCHLOROthiazide [Hydrochlorothiazide] 25 mg PO DAILY 06/22/20 [History] traMADol [Ultram] 50 mg PO Q8H PRN 06/22/20 [History] Baclofen 10 mg PO ASDIRECTED PRN 10/09/20 [History] Past Medical History HEENT History: Reports: Hard of Hearing, Impaired Vision Cardiovascular History: Reports: High Cholesterol Neurological History: Reports: Brain Injury, CVA, Seizure, Other (See Below) Other Neuro History: epilepsy Psychiatric History: Reports: Depression Endocrine/Metabolic History: Reports: Diabetes, Type II - Infectious Disease History Infectious Disease History: Reports: Chicken Pox, Shingles - Past Surgical History HEENT Surgical History: Reports: Cataract Surgery GI Surgical History: Reports: Colonoscopy Musculoskeletal Surgical History: Reports: Knee Replacement Social & Family History - Tobacco Use Tobacco Use Status *Q: Never Tobacco User - Caffeine Use Caffeine Use: Reports: Coffee - Recreational Drug Use Recreational Drug Use: No ED ROS GENERAL - Review of Systems Review Of Systems: See Below Musculoskeletal: Reports: Neck Pain Neurological: Reports: No Symptoms ED EXAM, UPPER BACK/NECK PAIN - Physical Exam Exam: See Below Exam Limited By: Uncooperative (Irritable and aggressive) General Appearance: Alert, No Apparent Distress Eye Exam: Bilateral Eye: Normal Inspection Throat/Mouth Exam: No Airway Compromise Head Exam: Atraumatic, Normocephalic Neck Exam: Normal Alignment, Limited Range of Motion, Muscle Spasm, Painful Range of Motion, Paraspinous Muscle Tender, Stiff Neck, Tender Lateral Course - Vital Signs Last Recorded V/S: Last Vital Signs Temp 98.0 F 10/09/20 01:46 Pulse 76 10/09/20 01:46 Resp 18 10/09/20 01:46 BP 151/94 H 10/09/20 01:46 Pulse Ox 95 10/09/20 01:46 - Orders/Labs/Meds Meds: Medications Discontinued Medications Generic Name Dose Route Start Last Admin Trade Name Greg PRN Reason Stop Dose Admin Fentanyl 100 mcg 10/09/20 02:06 10/09/20 02:15 Fentanyl 100 Mcg/2 Ml Sdv IM 10/09/20 02:07 100 mcg ONETIME ONE Administration Departure - Departure Time of Disposition: 03:09 Disposition: Home, Self-Care 01 Condition: Fair Clinical Impression: Neck pain - Discharge Information Instructions: Cervical Sprain, [id number] Referrals: Yao Catalan MD [Primary Care Provider] - Forms: ED Department Discharge Additional Instructions: Continue to use your baclofen as needed, with the addition of the Percocet for pain control please follow-up with your primary care on Saturday for further evaluation Sepsis Event Note (ED) - Evaluation Sepsis Screening Result: No Definite Risk - Focused Exam Vital Signs: Vital Signs Temp Pulse Resp BP Pulse Ox 10/09/20 01:46 98.0 F 76 18 151/94 H 95 10/09/20 01:40 98.0 F 76 18 151/94 H 95 - Assessment/Plan Plan: Assessment Acuity = acute Site and laterality = neck pain Etiology = probable underlying muscle spasm Manifestations = none Location of injury = Home Lab values = none Plan Good relief with fentanyl provided in the emergency department he did increase his neck mobility prescription for Percocet 5/325 1 tab p.o. 3 times daily as needed total #10 he will follow-up with his primary care on Saturday This note was dictated using [employer] voice recognition software please call with any questions on syntax or grammar.
== END 2020-10-09 03:26 | disposition home or self-care (01) ==
LOC: JP.ED 01:36
DX: M54.2 Cervicalgia (principal); E11.9 Type 2 diabetes mellitus without complications; G40.909 Epilepsy, unspecified, not intractable, without status epilepticus; Z79.82 Long term (current) use of aspirin; Z79.84 Long term (current) use of oral hypoglycemic drugs; Z79.899 Other long term (current) drug therapy; Z86.73 Personal history of transient ischemic attack (TIA), and cerebral infarction without residual deficits
CPT/HCPCS: 96372; 99283; J3010

== ENCOUNTER 2021-10-19 23:34 | Emergency (ER) | payer MEDICARE, MEDICAID ==
[2021-10-19] MEDS ORDERED: Sodium Chloride 0.9% 10 ML Syringe FLUSH PRN (23:37)
[2021-10-20 00:33] LABS: TROPONIN I HIGH SENSITIVITY 16.8 pg/mL (<=60.3)
[2021-10-20] MEDS ORDERED: Lactated Ringers 1,000 ML IV SCH (00:45)
[2021-10-20] MEDS ORDERED: Ibuprofen 600 MG Tab PO ONE (00:48)
[2021-10-20] MEDS ORDERED: LORazepam 2 MG/ML SDV IVPUSH PRN (00:52)
[2021-10-20] MEDS ORDERED: Magnesium Sulfate/Water 2 GM in Premix Bag 1 BAG IV ONE (00:56)
[2021-10-20] MEDS ORDERED: Acetaminophen 325 MG Tab PO PRN (06:41)
[2021-10-20] MEDS ORDERED: Dexamethasone 4 MG/ML SDV IVPUSH SCH (06:45)
[2021-10-20] MEDS ORDERED: REMDESIVIR 200 MG in Sodium Chloride 0.9% 250 ML IV ONE ×2 (07:50→10:00)
[2021-10-20] MEDS ORDERED: atorvaSTATin 20 MG Tab PO ONE (08:26)
[2021-10-20] MEDS ORDERED: Hydrochlorothiazide 25 MG Tab PO ONE (08:28)
[2021-10-20] MEDS ORDERED: levETIRAcetam 250 MG Tab PO ONE (08:29)
[2021-10-20] MEDS ORDERED: Lisinopril 20 MG Tab PO ONE (08:31)
[2021-10-20] MEDS ORDERED: Potassium Chloride 20 MEQ Tab.ER PO ONE (08:32)
[2021-10-20] MEDS ORDERED: Aspirin 81 MG Tab.Chew PO ONE (08:33)
[2021-10-20] MEDS ORDERED: Citalopram 10 MG Tab PO SCH (09:00)
[2021-10-20 16:23] VITALS: BP 115/70; PULSE 82
== END 2021-10-20 17:15 | disposition home or self-care (01) ==
LOC: JP.ED 23:34
DX: A40.9 Streptococcal sepsis, unspecified (principal); U07.1 COVID-19; J96.01 Acute respiratory failure with hypoxia; E83.42 Hypomagnesemia; E78.00 Pure hypercholesterolemia, unspecified; E11.9 Type 2 diabetes mellitus without complications; Z86.73 Personal history of transient ischemic attack (TIA), and cerebral infarction without residual deficits; Z88.2 Allergy status to sulfonamides; Z88.1 Allergy status to other antibiotic agents; Z79.82 Long term (current) use of aspirin; Z79.899 Other long term (current) drug therapy
CPT/HCPCS: 36415; 71045; 80053; 81001; 82728; 83605; 83615; 83735; 83880; 84145; 84484; 85025; 85379; 86140; 93005; 93010; 96365; 96366; 96367; 96375; 99284; 99285-25; A9270-GY; J0248; J1100; J2060; J3475; J3490; J7050; J7120; U0002

== ENCOUNTER 2022-07-16 19:58 | Emergency (ER) | payer MEDICARE, MEDICAID ==
[2022-07-16 21:06] LABS: ESTIMATED GFR 48 mL/min (>60)
[2022-07-16] MEDS ORDERED: Sodium Chloride 0.9% 10 ML Syringe FLUSH PRN (21:29)
[2022-07-16] MEDS ORDERED: Sodium Chloride 0.9% 1,000 ML IV SCH (21:30)
[2022-07-16] MEDS ORDERED: Sodium Chloride 0.9% 75 ML IV SCH (21:45)
[2022-07-16] MEDS ORDERED: Iopamidol 612 MG/ML 100 ML Bottle IV SCH (21:45)
[2022-07-16] MEDS ORDERED: cefTRIAXone 1 GM in Sodium Chloride 0.9% 50 ML IV ONE (22:47)
[2022-07-16 23:05] VITALS: BP 153/74; PULSE 47
== END 2022-07-16 23:31 | disposition home or self-care (01) ==
LOC: JP.ED 19:58
DX: N30.90 Cystitis, unspecified without hematuria (principal); E11.9 Type 2 diabetes mellitus without complications; E78.00 Pure hypercholesterolemia, unspecified; Z88.1 Allergy status to other antibiotic agents; Z88.2 Allergy status to sulfonamides; Z79.82 Long term (current) use of aspirin; Z79.899 Other long term (current) drug therapy; Z86.73 Personal history of transient ischemic attack (TIA), and cerebral infarction without residual deficits
CPT/HCPCS: 36415; 74177; 80053; 81001; 83605; 85025; 87086; 96361; 96365; 99282; 99284; J0696; J3490; J7030; Q9967

== ENCOUNTER 2022-10-17 20:39 | Inpatient (IN) | payer MEDICARE, MEDICAID ==
[2022-10-17] MEDS ORDERED: Sodium Chloride 0.9% 10 ML Syringe FLUSH PRN (20:51)
[2022-10-17 20:57] LABS: BASOPHILS ABSOLUTE AUTO 0.06 K/uL (0.00-0.10); BASOPHILS PERCENT AUTO 0.7 % (0.1-1.3); EOSINOPHILS ABSOLUTE AUTO 0.33 K/uL (0.00-0.40); EOSINOPHILS PERCENT AUTO 3.7 % (0.0-5.4); HEMATOCRIT 43.7 % (38.4-49.7); HEMOGLOBIN 14.6 g/dL (12.9-16.9); IMMATURE GRAN ABSOLUTE AUTO 0.02 K/uL (0.00-0.23); IMMATURE GRAN PERCENT AUTO 0.2 % (0.0-0.7); LYMPHOCYTES ABSOLUTE AUTO 3.02 K/uL (0.8-3.3); LYMPHOCYTES PERCENT AUTO 33.4 % (11.4-47.7); MEAN CORPUSCULAR HEMOGLOBIN 30.2 pg (31.6-35.5); MEAN CORPUSCULAR HGB CONC 33.4 g/dL (31.6-35.5); MEAN CORPUSCULAR VOLUME 90.3 fL (81.4-99.0); MONOCYTES ABSOLUTE AUTO 0.72 K/uL (0.20-0.90); NEUTROPHILS ABSOLUTE AUTO 4.88 K/uL (1.0-7.6); PLATELET COUNT,PLT 177 K/uL (130-375); RED BLOOD CELL COUNT 4.84 M/uL (4.14-5.76)
[2022-10-17 21:18] LABS: PROTHROMBIN TIME 10.1 sec (9.2-10.6); PTT,PARTIAL THROMBOPLSTIN TIME 20.5 sec (21.8-27.3)
[2022-10-17 21:27] LABS: A/G RATIO 0.8 (1.2-2.2); ALANINE AMINOTRANSFERASE,ALT 22 U/L (12-78); ALBUMIN 3.1 g/dL (3.4-5.0); ALKALINE PHOSPHATASE 99 U/L (46-116); ANION GAP 7.1 mmol/L (5.0-14.0); ASPARTATE AMNIOTRANSFERASE,AST 29 U/L (15-37); BILIRUBIN TOTAL 0.4 mg/dL (0.2-1.0); BLOOD UREA NITROGEN,BUN 25 mg/dL (7-18); CALCIUM 8.9 mg/dL (8.5-10.1); CARBON DIOXIDE,CO2 31 mmol/L (21-32); CHLORIDE,CL 103 mmol/L (100-108); CREATININE 1.3 mg/dL (0.8-1.3); ESTIMATED GFR 57 mL/min (>60); GLUCOSE RANDOM 198 mg/dL (74-106); POTASSIUM,K 3.9 mmol/L (3.6-5.2); PROTEIN TOTAL,TP 6.9 g/dL (6.4-8.2); SODIUM,NA 141 mmol/L (140-148)
[2022-10-18] MEDS ORDERED: 50% Dextrose in Water 50 ML Syringe IV PRN (00:24)
[2022-10-18] MEDS ORDERED: Glucose Gel 15 GM in 37.5 GM Tube PO PRN (00:24)
[2022-10-18] MEDS ORDERED: Lactated Ringers 1,000 ML IV SCH ×2 (00:24→13:00)
[2022-10-18] MEDS ORDERED: Ondansetron 4 MG/2 ML SDV IV PRN (00:24)
[2022-10-18] MEDS ORDERED: Sodium Chloride 0.9% 10 ML Syringe FLUSH PRN (00:24)
[2022-10-18] MEDS: Magnesium Sulfate/Water 2 GM in Premix Bag 1 BAG IV SCH ×2 (00:57→03:36)
[2022-10-18] MEDS: Magnesium Oxide 400 MG Tab PO SCH ×3 (01:03→21:07)
[2022-10-18 05:21] LABS: CALCIUM 8.8 mg/dL (8.5-10.1); CREATININE 1.1 mg/dL (0.8-1.3); EST CRCL DRUG DOSING (CG) 49.7 mL/min; MAGNESIUM 2.7 mg/dL (1.8-2.4); POTASSIUM,K 3.5 mmol/L (3.6-5.2)
[2022-10-18 05:24] LABS: ANION GAP 9.5 mmol/L (5.0-14.0)
[2022-10-18] MEDS ORDERED: Potassium Chloride 100 ML ONE (06:48)
[2022-10-18] MEDS: Potassium Chloride 10 MEQ in Premix Bag 1 BAG IV SCH ×2 (06:50→07:59)
[2022-10-18] MEDS ORDERED: Bupivacaine 0.5% 50 ML MDV ONE ×2 (07:41→09:53)
[2022-10-18] MEDS ORDERED: Lidocaine 1% with EPINEPHrine 1:100,000 50 ML MDV ONE ×2 (07:41→09:54)
[2022-10-18] MEDS ORDERED: Meropenem 500 MG SDV ONE (07:42)
[2022-10-18] MEDS: Insulin Lispro 100 Unit/ML 3 ML KwikPen SUBCUT SCH ×4 (07:54→21:16)
[2022-10-18] MEDS ORDERED: ceFAZolin 2 GM in Premix Bag 1 BAG IV ONE (09:30)
[2022-10-18] MEDS ORDERED: Midazolam 1 MG/ML 2 ML SDV ONE (10:11)
[2022-10-18] MEDS ORDERED: fentaNYL 50 MCG/ML SDV ONE (10:11)
[2022-10-18] MEDS ORDERED: Propofol 200 MG/20 ML SDV ONE ×2 (10:12→11:17)
[2022-10-18] MEDS ORDERED: HYDROmorphone/Normal Saline 6 MG/30 ML PCA Vial IV PRN (10:47)
[2022-10-18] MEDS ORDERED: Ondansetron 4 MG/2 ML SDV IVPUSH PRN (10:47)
[2022-10-18] MEDS ORDERED: diphenhydrAMINE 50 MG/ML SDV IVPUSH PRN (10:47)
[2022-10-18] MEDS ORDERED: Naloxone 0.4 MG/ML SDV IVPUSH PRN (10:47)
[2022-10-18] MEDS ORDERED: diphenhydrAMINE 25 MG Cap PO PRN (10:47)
[2022-10-18] MEDS ORDERED: Naloxone 0.4 MG/ML SDV IV PRN (11:00)
[2022-10-18] MEDS ORDERED: Linezolid 600 MG/300 ML Premix Bag IRR ONE (11:00)
[2022-10-18] MEDS: Aspirin 81 MG Tab.EC PO SCH (12:43)
[2022-10-18] MEDS: Hydrochlorothiazide 12.5 MG Cap PO SCH (12:43)
[2022-10-18] MEDS: Lisinopril 20 MG Tab PO SCH ×2 (12:44→21:06)
[2022-10-18] MEDS: Potassium Chloride 20 MEQ Tab.ER PO SCH (12:44)
[2022-10-18] MEDS: Gabapentin 300 MG Cap PO SCH ×2 (12:45→21:06)
[2022-10-18] MEDS: Citalopram 10 MG Tab PO SCH (12:45)
[2022-10-18] MEDS: Hydrochlorothiazide 25 MG Tab PO SCH (12:46)
[2022-10-18] MEDS: levETIRAcetam 250 MG Tab PO SCH ×2 (12:46→21:07)
[2022-10-18] MEDS: ceFAZolin 2 GM in Premix Bag 1 BAG IV SCH (17:12)
[2022-10-18] MEDS: Acetaminophen 325 MG Tab PO PRN ×2 (17:19→21:18)
[2022-10-18] MEDS ORDERED: atorvaSTATin 20 MG Tab PO SCH (21:00)
[2022-10-19] MEDS ORDERED: traMADol 50 MG Tab PO PRN (01:17)
[2022-10-19] MEDS: ceFAZolin 2 GM in Premix Bag 1 BAG IV SCH ×2 (01:22→08:09)
[2022-10-19 04:18] LABS: BASOPHILS ABSOLUTE AUTO 0.05 K/uL (0.00-0.10); BASOPHILS PERCENT AUTO 0.5 % (0.1-1.3); EOSINOPHILS ABSOLUTE AUTO 0.37 K/uL (0.00-0.40); EOSINOPHILS PERCENT AUTO 3.6 % (0.0-5.4); HEMOGLOBIN 13.5 g/dL (12.9-16.9); IMMATURE GRAN ABSOLUTE AUTO 0.03 K/uL (0.00-0.23); IMMATURE GRAN PERCENT AUTO 0.3 % (0.0-0.7); LYMPHOCYTES ABSOLUTE AUTO 2.72 K/uL (0.8-3.3); LYMPHOCYTES PERCENT AUTO 26.6 % (11.4-47.7); MEAN CORPUSCULAR HEMOGLOBIN 30.8 pg (31.6-35.5); MEAN CORPUSCULAR HGB CONC 33.8 g/dL (31.6-35.5); MEAN CORPUSCULAR VOLUME 91.1 fL (81.4-99.0); MONOCYTES ABSOLUTE AUTO 0.94 K/uL (0.20-0.90); MONOCYTES PERCENT AUTO 9.2 % (3.3-12.6); NEUTROPHILS PERCENT AUTO 59.8 % (40.0-78.1); PLATELET COUNT,PLT 170 K/uL (130-375); RED BLOOD CELL COUNT 4.39 M/uL (4.14-5.76); WHITE BLOOD CELL COUNT,WBC 10.2 K/uL (3.2-11.0)
[2022-10-19 04:37] LABS: CALCIUM 8.3 mg/dL (8.5-10.1); CREATININE 1.1 mg/dL (0.8-1.3); EST CRCL DRUG DOSING (CG) 49.7 mL/min; MAGNESIUM 1.8 mg/dL (1.8-2.4)
[2022-10-19] MEDS: Insulin Lispro 100 Unit/ML 3 ML KwikPen SUBCUT SCH (08:05)
[2022-10-19] MEDS: Aspirin 81 MG Tab.EC PO SCH (09:51)
[2022-10-19] MEDS: Hydrochlorothiazide 12.5 MG Cap PO SCH (09:51)
[2022-10-19] MEDS: Potassium Chloride 20 MEQ Tab.ER PO SCH (09:51)
[2022-10-19] MEDS: Citalopram 10 MG Tab PO SCH (09:51)
[2022-10-19] MEDS: Lisinopril 20 MG Tab PO SCH (09:51)
[2022-10-19] MEDS: levETIRAcetam 250 MG Tab PO SCH (09:52)
[2022-10-19] MEDS: Gabapentin 300 MG Cap PO SCH (09:52)
[2022-10-19] MEDS: Magnesium Oxide 400 MG Tab PO SCH (09:52)
[2022-10-19] MEDS: Hydrochlorothiazide 25 MG Tab PO SCH (09:52)
[2022-10-19 10:11] VITALS: BP 139/73; PULSE 86
== END 2022-10-19 10:50 | disposition home or self-care (01) | DRG 244 ==
LOC: JP.ED 20:39 → JP.ICU 22:15
PROVIDERS: ADMIT Hospitalist; ATTEND Hospitalist
PROC: 0JH606Z Insertion of Pacemaker, Dual Chamber into Chest Subcutaneous Tissue and Fascia, Open Approach (ICD-10-PCS; principal; 2022-10-17)
PROC: 02H63JZ Insertion of Pacemaker Lead into Right Atrium, Percutaneous Approach (ICD-10-PCS; 2022-10-17)
PROC: 02HK3JZ Insertion of Pacemaker Lead into Right Ventricle, Percutaneous Approach (ICD-10-PCS; 2022-10-17)
DX: I44.2 Atrioventricular block, complete (principal); G40.909 Epilepsy, unspecified, not intractable, without status epilepticus; H91.90 Unspecified hearing loss, unspecified ear; G31.84 Mild cognitive impairment of uncertain or unknown etiology; E11.9 Type 2 diabetes mellitus without complications; F32.A Depression, unspecified; Z20.822 Contact with and (suspected) exposure to COVID-19; E78.5 Hyperlipidemia, unspecified; G20 Parkinson's disease; I10 Essential (primary) hypertension; I95.9 Hypotension, unspecified; Z96.659 Presence of unspecified artificial knee joint; Z98.890 Other specified postprocedural states; Z88.1 Allergy status to other antibiotic agents; Z88.2 Allergy status to sulfonamides; Z86.73 Personal history of transient ischemic attack (TIA), and cerebral infarction without residual deficits; Z88.8 Allergy status to other drugs, medicaments and biological substances; Z79.82 Long term (current) use of aspirin; Z79.899 Other long term (current) drug therapy; Z98.41 Cataract extraction status, right eye; Z98.42 Cataract extraction status, left eye
CPT/HCPCS: 36415; 70450; 71046; 71046-26; 76000; 80048; 80053; 80177; 82947; 83605; 83735; 84100; 84484; 85025; 85610; 85730; 93005; 93010; 99285; A9270-GY; C1898; J0690; J1642; J1815; J2020; J2185; J2250; J2704; J3010; J3475; J3480; J3490; J7120; U0002

== ENCOUNTER 2023-07-16 03:49 | Emergency (ER) | payer MEDICARE, MEDICAID ==
[2023-07-16] MEDS: HYDROmorphone 0.5 MG/0.5 ML Syringe IM ONE (05:01)
[2023-07-16] MEDS: Cyclobenzaprine 10 MG Tab PO ONE (05:01)
[2023-07-16 12:02] LABS: BASOPHILS ABSOLUTE AUTO 0.06 K/uL (0.00-0.10); BASOPHILS PERCENT AUTO 0.4 % (0.1-1.3); EOSINOPHILS ABSOLUTE AUTO 0.22 K/uL (0.00-0.40); EOSINOPHILS PERCENT AUTO 1.5 % (0.0-5.4); HEMATOCRIT 43.1 % (38.4-49.7); IMMATURE GRAN ABSOLUTE AUTO 0.05 K/uL (0.00-0.23); IMMATURE GRAN PERCENT AUTO 0.3 % (0.0-0.7); LYMPHOCYTES ABSOLUTE AUTO 2.65 K/uL (0.8-3.3); LYMPHOCYTES PERCENT AUTO 18.1 % (11.4-47.7); MEAN CORPUSCULAR HEMOGLOBIN 31.8 pg (31.6-35.5); MEAN CORPUSCULAR HGB CONC 34.8 g/dL (31.6-35.5); MEAN CORPUSCULAR VOLUME 91.3 fL (81.4-99.0); MONOCYTES ABSOLUTE AUTO 1.06 K/uL (0.20-0.90); MONOCYTES PERCENT AUTO 7.2 % (3.3-12.6); NEUTROPHILS PERCENT AUTO 72.5 % (40.0-78.1); PLATELET COUNT,PLT 213 K/uL (130-375); RED BLOOD CELL COUNT 4.72 M/uL (4.14-5.76); WHITE BLOOD CELL COUNT,WBC 14.6 K/uL (3.2-11.0)
[2023-07-16 12:05] LABS: ANION GAP 7.6 mmol/L (5.0-14.0); BLOOD UREA NITROGEN,BUN 25 mg/dL (7-18); CALCIUM 9.3 mg/dL (8.5-10.1); CARBON DIOXIDE,CO2 33 mmol/L (21-32); CHLORIDE,CL 99 mmol/L (100-108); CREATININE 1.3 mg/dL (0.8-1.3); ESTIMATED GFR 55 mL/min (>60); GLUCOSE RANDOM 199 mg/dL (74-106); POTASSIUM,K 3.9 mmol/L (3.6-5.2); SODIUM,NA 140 mmol/L (140-148)
[2023-07-16 12:06] LABS: C-REACTIVE PROTEIN 1.33 mg/dL (<0.50)
[2023-07-16 13:46] VITALS: BP 169/74; PULSE 125
== END 2023-07-16 08:59 | disposition home or self-care (01) ==
LOC: JP.ED 03:49
DX: M62.838 Other muscle spasm (principal); K04.7 Periapical abscess without sinus
CPT/HCPCS: 36415; 70450; 70490; 80048; 83605; 85025; 86140; 96372; 99283; 99284; A9270; J1170